=== PATIENT | female | born 1945 | race Caucasian/White ===

== ENCOUNTER 2023-10-28 09:27 | Inpatient (IN) ==
[2023-10-28 10:08] LABS: Basophils # (auto) 0.04 K/uL (0.00-0.20); Basophils % (auto) 0.6 %; Eosinophils # (auto) 0.07 K/uL (0.00-0.50); Eosinophils % (auto) 1.1 %; Hematocrit (blood only) 39.2 % (37.0-47.0); Hemoglobin 13.4 g/dl (12.0-16.0); Immature Granulocytes # (auto) 0.02 K/uL (0.01-0.20); Immature Granulocytes % (auto) 0.3 %; Lymphocytes # (auto) 1.24 K/uL (1.20-3.40); Lymphocytes % (auto) 19.5 %; Mean Corpuscular Hemoglobin 32.1 pg (25.0-34.0); Mean Corpuscular Hgb Conc 34.2 g/dL (32.0-36.0); Mean Corpuscular Volume 93.8 fL (80.0-100.0); Monocytes % (auto) 7.8 %; Neutrophils % (auto) 70.7 %; Platelet Count 160 K/uL (130-400); RDW Standard Deviation 44.4 fL (36.4-46.3); Red Blood Count 4.18 M/uL (4.20-5.40); White Blood Count 6.37 K/ul (4.8-10.8)
--- NOTE | 2023-10-28 10:30 | XRay Report ---
XR chest 1V portable CLINICAL HISTORY: Syncope. COMPARISON STUDY: Chest radiograph November 15, 2008. FINDINGS: Elevation of the right hemidiaphragm is unchanged. Lungs are clear. There is no pneumothora x or pleural effusion. Cardiomegaly is unchanged. Mediastinal contours are normal. There is no eviden ce for pulmonary edema. IMPRESSION: No acute cardiopulmonary findings. No change in appearance of the chest. ACT 112: Negative or not required by law. Electronically signed by: Thaddeus Walker M.D. 10/28/2023 10:29 AM
[2023-10-28 10:45] LABS: Albumin Level 4.4 gm/dl (3.4-5.0); Bilirubin,Total 0.8 mg/dl (0.2-1.0); Calcium 9.5 mg/dl (8.6-10.3); Magnesium 1.9 mg/dl (1.7-2.4); Potassium 4.3 mmol/L (3.5-5.1)
[2023-10-28 10:51] LABS: Albumin Globulin Ratio 1.5 (0.9-2); BUN Creatinine Ratio 27.6 (10-20); Creatinine Clr Calc Pharmacy 44.6 ml/min; Est GFR (Non-African American) 45.7 ml/min; Globulin 2.9 gm/dl (2.5-4.0); Total Protein 7.3 gm/dl (6.0-8.3)
--- NOTE | 2023-10-28 10:51 | CT Scan Report ---
CT SCAN OF THE BRAIN WITHOUT IV CONTRAST CLINICAL HISTORY: Fall. COMPARISON STUDY: No priors. TECHNIQUE: Unenhanced axial CT scan of the brain is performed from the vertex to the skull base. A do se lowering technique was utilized adhering to the principles of ALARA. FINDINGS: Brain parenchyma: There is age-related involutional change noting mild to moderate subcortical and pe riventricular microangiopathic disease. There is no hemorrhage, mass effect, or evidence of acute ter ritorial ischemia by CT criteria. Singleton-white matter differentiation is preserved. No extra-axial flui d collection is seen. Ventricles, sulci, cisterns: Prominent secondary to involutional change. Intracranial vasculature: There is atherosclerotic calcification of the cavernous carotid arteries. Calvarium: The skeletal structures are osteopenic. No depressed calvarial fracture is seen. Soft tissues: There is a left frontal scalp contusion. Sinuses and mastoids: The paranasal sinuses are clear. The mastoid air cells are well pneumatized. Orbits: The bony orbits are grossly intact. There are bilateral ocular lens implants. IMPRESSION: 1. There is no hemorrhage, mass effect, or evidence of acute territorial ischemia by CT criteria. 2. Left frontal scalp contusion. ACT 112: Negative or not required by law. Electronically signed by: Erick Proctor M.D. 10/28/2023 10:48 AM
--- NOTE | 2023-10-28 10:59 | CT Scan Report ---
MAXILLOFACIAL CT WITHOUT CONTRAST CLINICAL HISTORY: s/p fall COMPARISON STUDY: None. TECHNIQUE: A maxillofacial CT was performed without IV contrast. Coronal and sagittal reformats were viewed. Automated exposure control was utilized for the study. A dose lowering technique was utiliz ed adhering to the principles of ALARA. FINDINGS: A left forehead contusion is present. Globes are intact with no retrobulbar hematoma. No di splaced facial fractures are present. Orbital floors are intact. There is an age indeterminate nondis placed left nasal bone fracture. Alignment of the temporomandibular joints is anatomic. Mastoid air c ells are clear. No skull base fracture is present IMPRESSION: 1. Age indeterminate nondisplaced left nasal bone fracture. 2. Left forehead contusion. Globes intact. No retrobulbar hematoma. ACT 112: Negative or not required by law. Electronically signed by: Thaddeus Walker M.D. 10/28/2023 10:57 AM
[2023-10-28 11:04] LABS: Troponin I High Sensitivity 8.2 pg/ml (0-14)
--- NOTE | 2023-10-28 11:09 | Electrocardiogram Report ---
Test Reason : Blood Pressure : / mmHG Vent. Rate : 068 BPM Atrial Rate : 068 BPM P-R Int : 174 ms QRS Dur : 092 ms QT Int : 402 ms P-R-T Axes : 036 -33 052 degrees QTc Int : 427 ms Normal sinus rhythm Left axis deviation Abnormal ECG When compared with ECG of 03-MAR-2008 10:39, No significant change was found Confirmed by Jonathan Nieto ([id number]) on 10/28/2023 11:08:57 AM Referred By: Confirmed By:Jonathan Nieto
[2023-10-28 11:17] LABS: Adenovirus PCR Not Detected (NotDetected); Bordetella parapertussis PCR Not Detected (NotDetected); Bordetella pertussis PCR Not Detected (NotDetected); Chlamydia pneumoniae PCR Not Detected (NotDetected); Coronavirus 229E PCR Not Detected (NotDetected); Coronavirus CoV-2 (COVID19)PCR Not Detected (NotDetected); Coronavirus HKU1 PCR Not Detected (NotDetected); Coronavirus NL63 PCR Not Detected (NotDetected); Coronavirus OC43PCR Not Detected (NotDetected); Human Metapneumovirus PCR Not Detected (NotDetected); Influenza A PCR Not Detected (NotDetected); Influenza B PCR Not Detected (NotDetected); Mycoplasma pneumoniae PCR Not Detected (NotDetected); Parainfluenza Virus 1 PCR Not Detected (NotDetected); Parainfluenza Virus 2 PCR Not Detected (NotDetected); Parainfluenza Virus 3 PCR Not Detected (NotDetected); Parainfluenza Virus 4 PCR Not Detected (NotDetected); Respiratory Syncytial VirusPCR Not Detected (NotDetected); Rhinovirus/Enterovirus PCR Not Detected (NotDetected)
--- NOTE | 2023-10-28 11:17 | CT Scan Report ---
CT cervical spine wo con CLINICAL HISTORY: 78 years-old Female with s/p fall. Acute neck pain status post fall COMPARISON: None. TECHNIQUE: Multiple axial CT images of the cervical spine were obtained without contrast. A dose low ering technique was utilized adhering to the principles of ALARA. FINDINGS: Demineralized appearance of the bones. Multilevel degenerative changes include moderate to severe disc space narrowing at C5-C6 and C6-C7 with moderate spondylitic spurring and moderate-sized posterior disc osteophyte complex formations with moderate facet arthrosis. Severe degeneration at C1 -C2. No acute cervical spine fracture or subluxation identified. The cervical soft tissues appear unremarkable. The visualized lung apices appear clear. IMPRESSION: No acute cervical spine fracture or subluxation. ACT 112: Negative or not required by law. The above report was generated using voice recognition software. It may contain grammatical, syntax o r spelling errors. Electronically signed by: Joaquín Carmona M.D. 10/28/2023 11:15 AM
--- NOTE | 2023-10-28 12:36 | Emergency Department Note ---
Impression & Plan Syncope and collapse, CHI (closed head injury), Fracture of nasal bone, Forehead contusion, Bilateral arm pain ED Provider Note NAME: GILDARDO ARNOLD AGE: 78 SEX: Female INFORMANT: Patient and ED PROVIDER(S): Ray Guerin MD CHIEF COMPLAINT: Fall PLAN: Disposition: Admitted Outpatient prescription management: none Referral: None MEDICAL DECISION MAKING: Patient presented to the emergency department because of a fall yesterday. She had primary and secondary surveys performed. She had some discomfort in the upper extremities but this seems to be more radicular. There is no obvious signs of upper extremity trauma. She had obvious forehead contusion and healing abrasion to the bridge of the nose. CT imaging of the head and neck along with facial bones ordered. Her CBC and chemistry panels were unremarkable. Cardiac troponin was negative. Her ECG did not show any ischemia. No dysrhythmia or significant ectopy on monitoring. The patient was found to have just forehead contusion on head CT. Facial bone imaging revealed a nasal bone fracture. Patient was found to have degenerative changes and osteophyte/disc complex on cervical CT imaging. This may explain her upper extremity discomfort. Workup did not reveal any obvious etiology to her unprovoked syncopal episode. On further discussion with the he did note that she seemed a little off yesterday afternoon before he left the house but the patient did not have any complaints. MR imaging of the brain and cervical spine ordered. Consultation was made with the hospitalist service. Consultation was made with Dr. Alex Solorzano of the [facility] service. Patient was evaluated in the ER for further management. Care/management discussed with: Discussed with analytical manager Level of care consideration(s): After review of the information above and other included data, I feel the patient requires escalation of care to admission. Triage Nursing notes: reviewed and agree them. Vital Signs: reviewed and remarkable for mild hypertension Additional History obtained from: Patient's . Chronic Medical/Social Conditions affecting care: High cholesterol, hypertension Prior/ Outside/ External records reviewed: none Differential Diagnosis: Concussion, contusion, fracture, subdural hematoma, epidural hematoma, intraparenchymal hemorrhage, cardiac etiology, dysrhythmia, hypotension, as well as other pathologies. Diagnostics, independently interpreted by me: ECG: Twelve-lead ECG reveals normal sinus rhythm at 60 bpm. Left axis deviation. No ST elevation or depression. Cardiac Monitoring: Cardiac monitoring ordered by me: The patient was placed on continuous cardiac monitoring and observed. It revealed a normal sinus rhythm at 69 beats per minute without ectopy or evidence of dysrhythmia. Medical decision rules: none Imaging studies: CT scan of the head, facial bones and cervical spine reveal nasal bone fracture. Degenerative changes and disc osteophyte noted on cervical imaging. HPI: 78 year old Female arrives for evaluation of a fall this occurred yesterday. Patient. States that she woke up on the floor in her kitchen and there was a broken glass. She does not remember the event. She denies feeling ill or having any prodrome prior to the event. No prior history of syncope. Patient's is present and notes that he had to leave the house yesterday afternoon and she seemed to be a little off but was without complaints. Patient noted bruising to the forehead, around her eyes and bleeding from her nose. There was an abrasion on the bridge of the nose. Patient also notes swelling of her upper lip with some bruising as well. She has discomfort that is in both hands and wrist. Radiates up towards her shoulders. She has some discomfort in her neck. She does note having a mild cold a few weeks ago. Pt denies fevers, chills, diaphoresis, visual changes,chest pain, breathing difficulties, nausea, vomiting, abdominal pain, back pain, melena, hematochezia, urinary symptoms, numbness, weakness, lymphadenopathy, rash, or other complaints. PAST MEDICAL HISTORY: See Below, hypertension PAST SURGICAL HISTORY: See Below, SOCIAL HISTORY: See Below, HOME MEDICATIONS: See Below ALLERGIES: See Below VITALS: See Below PHYSICAL EXAMINATION: GENERAL: Awake, alert, well-appearing, in no distress HENT: Normocephalic, forehead contusion present. There is a healing abrasion noted on the bridge of the nose. Some mild tenderness in this area. Mild perinasal ecchymosis as well as periorbital ecchymosis TMs normal.. Oropharynx unremarkable except for contusion to the upper lip and abrasion to the inner aspect of the upper lip. EYES: Normal conjunctiva. Sclera non-icteric. NECK: Inspection normal. Mild tenderness around C7 without step-offs. Supple. No nuchal rigidity. FROM. No masses. RESPIRATORY: Clear to auscultation. No wheezes. No rales. Normal respiratory effort. CARDIAC: Normal rate. Normal rhythm. No murmurs. No rubs. Extremities warm and well perfused. Pulses equal. No JVD. GI: Soft, non-distended. No tenderness to palpation. No rebound or guarding. No masses. RECTAL: Deferred. MUSCULOSKELETAL: Atraumatic in appearance. The patient has some discomfort in both hands and forearms without any edema, erythema, ecchymosis, or deformity.. Chest examination reveals no tenderness. The back is symmetrical on inspection without obvious abnormality. There is no CVA tenderness to palpation. No joint edema. LOWER EXTREMITIES: Calves are equal size bilaterally and non-tender. No edema. No discoloration. NEURO: Normal sensorium. No sensory or motor deficits noted. SKIN: No rash or jaundice noted. PROCEDURES: none CRITICAL CARE: none OBSERVATION NOTE: none Past Med/Surg History Medical History (Updated 10/28/23 @ 13:27 by Alex Solorzano MD) History of hypoglycemia December 2022 , low sugar...non responsive - hospitalized at [facility]. Determined to have low potassium and dehydration. No re-occurence. PCP has records. History of COVID-13 Sep 2021. Glaucoma Overactive bladder mostly at night.ongoing for yrs. History of colitis mild.showed up on a ct scan. Emphysema lung mild/no medical tx ever in hx. Asthma mild/no medical tx ever in hx. History of sleep apnea resolved after weight loss sx. Arthritis Anxiety and depression Low iron hx Acid reflux Hyperlipidemia HTN (hypertension) Diabetes diet controlled/improved after weight loss surgery. Surgical History (Updated 10/28/23 @ 12:49 by Alex Solorzano MD) Hx of left cataract extraction w/ left I stent injection History of cardiac cath remote hx...sob...[place]...no stent(s). History of total right knee replacement History of left knee replacement History of gastric bypass February 2012. History of colonoscopy Social History Smoking Status: Never smoker Tobacco Type: Cigarettes Second Hand Exposure: No; Do You Dip or Chew Tobacco: No; Hx Alcohol Use: Yes Alcohol type: wine and other Hx Substance Use: Yes Last Used Substance Other:: remote hx marijuana Preferred Language: Macedonian Communication Ability: Effective As400 Programmer Analyst Required: No Beliefs That Will Affect Care: None Current Living Situation: Spouse Current Living Situation Comment: and dog and cat Feels Safe at Home: Yes Assistive Devices: Glasses and Other Allergies Allergies Allergy/AdvReac Type Severity Reaction Status Date / Time celecoxib AdvReac Unknown SKIN Verified 09/07/23 08:00 [place] Home Meds Home Medications Medication Instructions Recorded Confirmed aspirin 81 mg tablet,delayed 81 mg PO QPM 08/14/23 10/28/23 release atorvastatin 40 mg tablet 40 mg PO QPM 08/14/23 10/28/23 buspirone 5 mg tablet 5 mg PO BID 08/14/23 10/28/23 calcium carbonate 600 mg-vitamin 1 tab PO BID 08/14/23 10/28/23 D3 5 mcg (200 unit) tablet cholecalciferol (vitamin D3) 50 50 mcg PO QPM 08/14/23 10/28/23 mcg (2,000 unit) capsule (Vitamin D3) cyanocobalamin (vitamin B-12) 1,000 mcg PO QAM 08/14/23 10/28/23 1,000 mcg tablet (Vitamin B-12) duloxetine 60 mg capsule,delayed 60 mg PO QAM 08/14/23 10/28/23 release esomeprazole magnesium 20 mg 20 mg PO QAM 08/14/23 10/28/23 tablet,delayed release ferrous sulfate 325 mg (65 mg 65 mg PO HS 08/14/23 10/28/23 iron) capsule,extended release hydrochlorothiazide 25 mg tablet 25 mg PO QAM 08/14/23 10/28/23 losartan 100 mg tablet 100 mg PO QPM 08/14/23 10/28/23 magnesium 250 mg tablet 250 mg PO QPM 08/14/23 10/28/23 potassium chloride 10 mEq 10 meq PO .EVERY OTHER DAY 08/14/23 10/28/23 tablet,extended release venlafaxine 37.5 mg 37.5 mg PO QAM 08/14/23 10/28/23 capsule,extended release 24 hr amoxicillin 500 mg capsule 2,000 mg PO .1 HR BEFORE CAROL ANN PRN 10/28/23 10/28/23 dental latanoprost 0.005 % eye drops 1 drp ophthalmic (eye) HS 10/28/23 10/28/23 Results & Data (ED) Vital Signs Vital Signs - 24 hr 10/28/23 09:30 10/28/23 11:30 10/28/23 12:02 Temperature 36.5 C Temperature Source Temporal Artery Scan Pulse Rate 76 69 Pulse Rate [Apical] 69 Respiratory Rate 20 18 Respiratory Effort / Characteristics Non-Labored Spontaneous Non-Labored Spontaneous Respiratory Depth Normal Normal Respiratory Pattern Regular Blood Pressure 180/80 H Blood Pressure [Right Arm] 174/98 H Blood Pressure Mean 113 Blood Pressure Mean [Right Arm] 123 Blood Pressure Position [Right Arm] Lying Pulse Oximetry 99 95 Oxygen Delivery Method Room Air Room Air Sepsis Recent Fever Within 48 Hours No Sepsis New/Unexplained Change in Mental Status No Sepsis Action Taken by Nursing No Action Required 10/28/23 13:19 Temperature Temperature Source Pulse Rate Pulse Rate [Apical] 66 Respiratory Rate 18 Respiratory Effort / Characteristics Non-Labored Spontaneous Respiratory Depth Normal Respiratory Pattern Regular Blood Pressure Blood Pressure [Right Arm] 178/87 H Blood Pressure Mean Blood Pressure Mean [Right Arm] 117 Blood Pressure Position [Right Arm] Lying Pulse Oximetry 97 Oxygen Delivery Method Room Air Sepsis Recent Fever Within 48 Hours Sepsis New/Unexplained Change in Mental Status Sepsis Action Taken by Nursing Laboratory Data 10/28/23 09:52 10/28/23 09:52 Lab Results 10/28/23 10/28/23 Range/Units 09:52 10:22 WBC 6.37 (4.8-10.8) K/ul RBC 4.18 L (4.20-5.40) M/uL Hgb 13.4 (12.0-16.0) g/dl Hct 39.2 (37.0-47.0) % MCV 93.8 (80.0-100.0) fL MCH 32.1 (25.0-34.0) pg MCHC 34.2 (32.0-36.0) g/dL RDW Std Deviation 44.4 (36.4-46.3) fL RDW Coeff of Karen 13.0 (11.5-14.5) % Plt Count 160 (130-400) K/uL MPV 10.0 (9.4-12.4) fL Immature Gran % (Auto) 0.3 % Neut % (Auto) 70.7 % Lymph % (Auto) 19.5 % [place] % (Auto) 7.8 % Eos % (Auto) 1.1 % Baso % (Auto) 0.6 % Neut # (Auto) 4.50 (1.40-6.50) K/uL Lymph # (Auto) 1.24 (1.20-3.40) K/uL [place] # (Auto) 0.50 (0.11-0.59) K/uL Eos # (Auto) 0.07 (0.00-0.50) K/uL Baso # (Auto) 0.04 (0.00-0.20) K/uL Immature Gran # (Auto) 0.02 (0.01-0.20) K/uL Sodium 135 L (136-145) mmol/L Potassium 4.3 (3.5-5.1) mmol/L Chloride 99 (98-107) mmol/L Carbon Dioxide 27 (21-32) mmol/L Anion Gap 9 (3-11) BUN 32 H (6-23) mg/dl Creatinine 1.16 (0.6-1.2) mg/dl Est Cr Clr Drug Dosing 44.6 ml/min Est GFR ( Amer) 53.0 ml/min Est GFR (Non-Af Amer) 45.7 ml/min BUN/Creatinine Ratio 27.6 H (10-20) Glucose 121 H (70-99(Fasting)) mg/dl Calcium 9.5 (8.6-10.3) mg/dl Magnesium 1.9 (1.7-2.4) mg/dl Total Bilirubin 0.8 (0.2-1.0) mg/dl AST 31 (13-39) U/L ALT 35 (7-52) U/L Alkaline Phosphatase 82 (34-104) U/L Troponin I High Sens 8.2 (0-14) pg/ml Total Protein 7.3 (6.0-8.3) gm/dl Albumin 4.4 (3.4-5.0) gm/dl Globulin 2.9 (2.5-4.0) gm/dl Albumin/Globulin Ratio 1.5 (0.9-2) Adenovirus (PCR) Not Detected (NotDetected) B. pertussis DNA (PCR) Not Detected (NotDetected) B.parapertussis DNA PCR Not Detected (NotDetected) C. pneumoniae DNA (PCR) Not Detected (NotDetected) Coronavirus OC43 (PCR) Not Detected (NotDetected) Coronavirus HKU1 (PCR) Not Detected (NotDetected) Coronavirus 229E (PCR) Not Detected (NotDetected) SARS-CoV-2 (PCR) Not Detected (NotDetected) Coronavirus NL63 (PCR) Not Detected (NotDetected) Human Metapneumovir PCR Not Detected (NotDetected) Influenza Type A (PCR) Not Detected (NotDetected) Influenza Type B (PCR) Not Detected (NotDetected) M. pneumoniae (PCR) Not Detected (NotDetected) Parainfluenza 1 (PCR) Not Detected (NotDetected) Parainfluenza 2 (PCR) Not Detected (NotDetected) Parainfluenza 3 (PCR) Not Detected (NotDetected) Parainfluenza 4 (PCR) Not Detected (NotDetected) RSV (PCR) Not Detected (NotDetected) Entero/Rhino (PCR) Not Detected (NotDetected) Imaging Data Radiologist's Impression: Cervical Spine CT 10/28/23 09:38 CT cervical spine wo con CLINICAL HISTORY: 78 years-old Female with s/p fall. Acute neck pain status post fall COMPARISON: None. TECHNIQUE: Multiple axial CT images of the cervical spine were obtained without contrast. A dose lowering technique was utilized adhering to the principles of ALARA. FINDINGS: Demineralized appearance of the bones. Multilevel degenerative changes include moderate to severe disc space narrowing at C5-C6 and C6-C7 with moderate spondylitic spurring and moderate-sized posterior disc osteophyte complex formations with moderate facet arthrosis. Severe degeneration at C1-C2. No acute cervical spine fracture or subluxation identified. The cervical soft tissues appear unremarkable. The visualized lung apices appear clear. IMPRESSION: No acute cervical spine fracture or subluxation. ACT 112: Negative or not required by law. The above report was generated using voice recognition software. It may contain grammatical, syntax or spelling errors. Electronically signed by: Joaquín Carmona M.D. 10/28/2023 11:[address] 10/28/23 09:[address] WITHOUT CONTRAST CLINICAL HISTORY: s/p fall COMPARISON STUDY: None. TECHNIQUE: A maxillofacial CT was performed without IV contrast. Coronal and sagittal reformats were viewed. Automated exposure control was utilized for the study. A dose lowering technique was utilized adhering to the principles of ALARA. FINDINGS: A left forehead contusion is present. Globes are intact with no retrobulbar hematoma. No displaced facial fractures are present. Orbital floors are intact. There is an age indeterminate nondisplaced left nasal bone fracture. Alignment of the temporomandibular joints is anatomic. Mastoid air cells are clear. No skull base fracture is present IMPRESSION: 1. Age indeterminate nondisplaced left nasal bone fracture. 2. Left forehead contusion. Globes intact. No retrobulbar hematoma. ACT 112: Negative or not required by law. Electronically signed by: Thaddeus Walker M.D. 10/28/2023 10:[address] 10/28/23 09:38 CT SCAN OF THE BRAIN WITHOUT IV CONTRAST CLINICAL HISTORY: Fall. COMPARISON STUDY: No priors. TECHNIQUE: Unenhanced axial CT scan of the brain is performed from the vertex to the skull base. A dose lowering technique was utilized adhering to the principles of ALARA. FINDINGS: Brain parenchyma: There is age-related involutional change noting mild to moderate subcortical and periventricular microangiopathic disease. There is no hemorrhage, mass effect, or evidence of acute territorial ischemia by CT criteria. Singleton-white matter differentiation is preserved. No extra-axial fluid collection is seen. Ventricles, sulci, cisterns: Prominent secondary to involutional change. Intracranial vasculature: There is atherosclerotic calcification of the cavernous carotid arteries. Calvarium: The skeletal structures are osteopenic. No depressed calvarial fracture is seen. Soft tissues: There is a left frontal scalp contusion. Sinuses and mastoids: The paranasal sinuses are clear. The mastoid air cells are well pneumatized. Orbits: The bony orbits are grossly intact. There are bilateral ocular lens implants. IMPRESSION: 1. There is no hemorrhage, mass effect, or evidence of acute territorial ischemia by CT criteria. 2. Left frontal scalp contusion. ACT 112: Negative or not required by law. Electronically signed by: Erick Proctor M.D. 10/28/2023 10:48 AM Chest X-Ray 10/28/23 09:42 XR chest 1V portable CLINICAL HISTORY: Syncope. COMPARISON STUDY: Chest radiograph November 15, 2008. FINDINGS: Elevation of the right hemidiaphragm is unchanged. Lungs are clear. There is no pneumothorax or pleural effusion. Cardiomegaly is unchanged. Mediastinal contours are normal. There is no evidence for pulmonary edema. IMPRESSION: No acute cardiopulmonary findings. No change in appearance of the chest. ACT 112: Negative or not required by law. Electronically signed by: Thaddeus Walker M.D. 10/28/2023 10:29 AM Discharge Plan Visit Data Chief Complaint: Fall Stated Complaint: FALL, FACIAL INJURY, HAND AND ARM PAIN, BACK PAIN ED Provider: Ray Guerin Discharge Problem: Syncope and collapse, CHI (closed head injury), Fracture of nasal bone, Forehead contusion, Bilateral arm pain Patient Disposition: Admitted As Inpatient Discharge Instructions Interventions: ED Discharge Assessment Last Done: 10/28/23 14:07
--- NOTE | 2023-10-28 12:54 | History & Physical Report ---
Date of Service October 28, 2023 Assessment & Plan (1) Syncope and collapse: Plan: Syncope No prodrome, no lightheadedness/dizziness preceding this. Denies orthostatic symptoms, is on losartan/hydrochlorothiazide. did stand to go to the kitchen prior. Orthostatics pending Sudden onset syncope with facial injury highly concerning for cardiogenic syncope. Normal sinus rhythm on admission. Denies chest pain/chest pressure/exertional angina. Echo pending, continuous telemetry, if remaining workup is negative would set up with 30-day Holter monitor and close follow-up on discharge Patient reports she think she had a history of mini strokes which were noted when she was in [place] but denies any symptoms for these and believes they were caught incidentally, details are unclear. She has no focal neurologic deficits prior to passing out, does have some paresthesias extending from the elbow to fingertips bilaterally since her fall? Blunt trauma neuropraxia. MRI brain/spine are pending. CT of the C-spine with no fracture or subluxation, CT of the head is normal Troponin normal Patient has had low blood sugar symptoms in the past, former diabetic which is now diet controlled since having weight loss post bariatric surgery. Blood sugar at time of event was 130 checked by her . Rulted out as cause No history of arrhythmia, EKG NSR on admission (2) CHI (closed head injury): Plan: With syncope evaluation is noted. No ICH. Mentating normally at time of ADMIT (3) Anxiety and depression: Plan: Continue home medications, no acute change in management (4) Paresthesia of upper extremity: Plan: Without strength or sensation compromise - [employer] Utility Worker strength, elbow flexion, shoulder flexion, hip flexion, ankle dorsiflexion/plantarflexion 5/5 bilaterally without asymmetry. [employer] Worker strength does produce some radicular symptoms from digits 1-3 extending up to the elbow bilateral with a shocking quality bilaterally. No symptoms induced on continued elbow flexion, tinel's negative at the cubital tunnel bilaterally. and froment's sign is not present. CTC-spine negative, CThead negative. MRI of the C-spine/brain are pending. Patient denies weakness and other strokelike deficits, but does note she thinks she may have had some strokelike findings on a CT many years ago but was told this was probably a mini stroke and did not have an MRI after. She does take a baby aspirin daily and is on atorvastatin for hyperlipidemia DDx includes traumatic blunt neuropraxia/plexopathy due to syncope Follow MRI results, if persistent and initial eval neg --> f/u EMG -No other strokelike deficits (5) Diabetes: Plan: In remission diet controlled since significant weight loss following bariatric surgery. Sliding scale as needed goal BSG 1 10-150 (6) History of cardiac cath: Plan: Patient reports she has never had chest pain, this was performed for shortness of breath prior to having weight loss and was normal many years ago. Shortness of breath was found to be due to weight and improved after her weight loss. 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 She did strike her head and has a forehead contusion on ER evaluation. Patient has shooting pain in her upper extremities bilaterally. Per Pt: Suddenly passed out yesterday. No warning. BSG was checked 131 at the time. No lightheadedness, dizziness. Was just playing with the dog and the cat watching TV. Did get up to take metamucil and take the glass into the kitchen and then next thing she knew was waking up on the floor of the house. No chest pain or chest pressure. No headache. No lightheadeness or dizziness. Denies weakness, has had some paresthesia in her hands bilaterally since yesterday. Denies GI bleeding and melena. Denies other bleeding. Denies focal weakness/extremity weakness. Denies vision change. Denies diplopia. Denies expressive or receptive aphasia. Denies dysarthria. No hx of lightheadedness No history of heart disease. Had a cardiac cath due to transient shortness of breath 'many man yyears ago before my weight loss' which showed nonobstructive disease/no disease. Was done in [place] w/ f/u to [place] and 'I was the only one normal that day.' Since falling has numbness/tingling in her fingertips which feel like 'little shocks'. Shoots down between the elbow and wrists/fingers on BOTH sides.' noted she transiently seemed a little confused and disoriented like she was with low blood sugar before falling, pt does not recall this and they checked her BSG which was normal as noted Hx of emphysema and asthma, takes no medications History of T2DM which was cured after weight loss with gastric bipass HTN on losartan/hctz. Took this AM. No hx orthostasis, feels her BP has been OK generally. Was seen in a hospital in [place] last year and ?evidence of ministrokes but patient has never had stroke like symptoms Medical History: Reviewed Medications: Reviewed Surgical History: Reviewed Family history: Reviewed Allergies: Reviewed Social History: Tobacco use in remission since 1994. Prior 30 years 1 ppd on average. Etoh 1 drink in the evening,one hard seltzer soemtimes in the evening. Code Status: DNR/DNI, discussed on admit Allergies Allergy/AdvReac Type Severity Reaction Status Date / Time celecoxib AdvReac Unknown SKIN Verified 09/07/23 08:00 [place] Home Medications Medication Instructions Recorded Confirmed Type aspirin 81 mg tablet,delayed 81 mg PO QPM 08/14/23 10/28/23 History release atorvastatin 40 mg tablet 40 mg PO QPM 08/14/23 10/28/23 History buspirone 5 mg tablet 5 mg PO BID 08/14/23 10/28/23 History calcium carbonate 600 mg-vitamin 1 tab PO BID 08/14/23 10/28/23 History D3 5 mcg (200 unit) tablet cholecalciferol (vitamin D3) 50 50 mcg PO QPM 08/14/23 10/28/23 History mcg (2,000 unit) capsule (Vitamin D3) cyanocobalamin (vitamin B-12) 1,000 mcg PO QAM 08/14/23 10/28/23 History 1,000 mcg tablet (Vitamin B-12) duloxetine 60 mg capsule,delayed 60 mg PO QAM 08/14/23 10/28/23 History release esomeprazole magnesium 20 mg 20 mg PO QAM 08/14/23 10/28/23 History tablet,delayed release ferrous sulfate 325 mg (65 mg 65 mg PO HS 08/14/23 10/28/23 History iron) capsule,extended release hydrochlorothiazide 25 mg tablet 25 mg PO QAM 08/14/23 10/28/23 History losartan 100 mg tablet 100 mg PO QPM 08/14/23 10/28/23 History magnesium 250 mg tablet 250 mg PO QPM 08/14/23 10/28/23 History potassium chloride 10 mEq 10 meq PO .EVERY OTHER DAY 08/14/23 10/28/23 History tablet,extended release venlafaxine 37.5 mg 37.5 mg PO QAM 08/14/23 10/28/23 History capsule,extended release 24 hr amoxicillin 500 mg capsule 2,000 mg PO .1 HR BEFORE [facility] PRN 10/28/23 10/28/23 History dental latanoprost 0.005 % eye drops 1 drp ophthalmic (eye) HS 10/28/23 10/28/23 History Past Med/Surg History Medical History (Updated 10/28/23 @ 13:27 by Alex Solorzano MD) History of hypoglycemia December 2022 , low sugar...non responsive - hospitalized at [facility]. Determined to have low potassium and dehydration. No re-occurence. PCP has records. History of COVID-13 Sep 2021. Glaucoma Overactive bladder mostly at night.ongoing for yrs. History of colitis mild.showed up on a ct scan. Emphysema lung mild/no medical tx ever in [place]. Asthma mild/no medical tx ever in [place]. History of sleep apnea resolved after weight loss sx. Arthritis Anxiety and depression Low iron hx Acid reflux Hyperlipidemia HTN (hypertension) Diabetes diet controlled/improved after weight loss surgery. Surgical History (Updated 10/28/23 @ 12:49 by Alex Solorzano MD) Hx of left cataract extraction w/ left I stent injection History of cardiac cath remote hx...sob...Cost...no stent(s). History of total right knee replacement History of left knee replacement History of gastric bypass February 2012. History of colonoscopy Social History Smoking Status: Never smoker Tobacco Type: Cigarettes Second Hand Exposure: No; Do You Dip or Chew Tobacco: No; Hx Alcohol Use: Yes Alcohol type: wine and other Hx Substance Use: Yes Last Used Substance Other:: remote hx marijuana Preferred Language: Nicaraguan Communication Ability: Effective Forming Process Worker Required: No Beliefs That Will Affect Care: None Current Living Situation: Spouse Current Living Situation Comment: and dog and cat Feels Safe at Home: Yes Assistive Devices: Glasses and Other Physical Exam Physical Exam: General: A&Ox3. NAD. Cooperative. HEENT: Swelling and contusion at the bridge of the nose. No ongoing bleeding. Pupils equal and reactive to light. EOM intact without pain and no evidence of entrapment Pulm: CTAB A&P. -wheezes, -rales, -rhonchi. Symmetrical chest rise. No increased work of breathing. No respiratory distress. Cardiac: RRR, -mrg. Radial pulses intact and symmetrical. Abdominal: Nontender, nondistended, soft. BS present. Extremities: Warm, dry. [employer] Worker strength, elbow flexion, shoulder flexion, hip flexion, ankle dorsiflexion/plantarflexion 5/5 bilaterally without asymmetry. [employer] Utility Worker strength does produce some radicular symptoms from digits 1-3 extending up to the elbow bilateral with a shocking quality. No symptoms induced on continued elbow flexion, tinel's negative at the cubital tunnel bilaterally. and froment's sign is not present. Results & Data Results & Data Vital Signs (Past 12 Hours) Vital Signs Temp Pulse Pulse Resp BP BP Pulse Ox 10/28/23 12:02 69 10/28/23 11:30 69 18 174/98 H 95 10/28/23 09:30 36.5 C 76 20 180/80 H 99 O2 Del Method 10/28/23 12:02 10/28/23 11:30 Room Air 10/28/23 09:30 Room Air PG Care Time/CCT Total # of Minutes Spent Total Time Spent with Patient: Total time spent is greater than 50% in coordination of care (as documented) at patient's floor/unit and/or counseling patient: Coding Level of Care Code 63854 INT INP/OBS CARE 3/75MIN Diagnoses Syncope and collapse R55 CHI (closed head injury) S09.90XA Anxiety and depression F41.9; F32.A Paresthesia of upper extremity R20.2 Diabetes E11.9 History of cardiac cath Z98.890 History of gastric bypass Z98.84
[2023-10-28] MEDS ORDERED: LABETALOL HCL IV 5 MG/ML 20ML IV PRN (13:30)
[2023-10-28] MEDS ORDERED: CARBOHYDRATES FOR HYPOGLYCEMIA PO PRN (13:31)
[2023-10-28] MEDS ORDERED: GLUCOSE 40% GEL 15 GM TUBE PO PRN (13:31)
[2023-10-28] MEDS ORDERED: GLUCAGON FOR INJ 1 MG VIAL SQ PRN (13:31)
[2023-10-28] MEDS ORDERED: GLUCOSE 10 TAB/TUBE PO PRN (13:31)
[2023-10-28] MEDS ORDERED: DEXTROSE 50% 50 ML SYRINGE IV PRN (13:31)
[2023-10-28] MEDS ORDERED: ACETAMINOPHEN 325 MG TAB PO PRN (14:08)
--- NOTE | 2023-10-28 15:29 | XCELERA ---
[id number]
[2023-10-28] MEDS: INSULIN ASPART PER UNIT CHARGE SC SCH ×2 (17:17→21:05)
--- NOTE | 2023-10-28 18:57 | Magnetic Resonance Report ---
MRI OF THE BRAIN WITHOUT IV CONTRAST CLINICAL HISTORY: Syncope. Head injury. COMPARISON STUDY: CT of the brain dated 10/28/2023. TECHNIQUE: MRI of the brain was performed utilizing various T1 and T2-weighted sequences in the axial , sagittal, and coronal planes. IV contrast was not administered for this examination. FINDINGS: Brain parenchyma: There is age-related involutional change noting mild to moderate subcortical and pe riventricular microangiopathic disease. There is no hemorrhage or mass effect. There is no restricted diffusion to suggest acute ischemia. Singleton-white matter differentiation is preserved. No extra-axial fluid collection is seen. The cerebellar tonsils are normal in configuration. Ventricles, sulci, and cisterns: Prominent secondary to involutional change. Pituitary and sella: Unremarkable. Intracranial vasculature: Normal flow voids are maintained at the skull base. Orbits: The bony orbits are grossly intact. Orbital contents are normal in appearance noting bilatera l ocular lens implants. Sinuses and mastoids: Clear. Calvarium: Unremarkable. Soft tissues: There is left frontal scalp contusion. Cervical cord: Partially visualized cervical spinal cord is normal in morphology and signal intensity . IMPRESSION: No acute intracranial abnormality. ACT 112: Negative or not required by law. Electronically signed by: Erick Proctor M.D. 10/28/2023 6:56 PM
[2023-10-28] MEDS: ASPIRIN 81 MG ECTAB PO SCH (19:30)
[2023-10-28] MEDS: ATORVASTATIN 40 MG TAB PO SCH (19:30)
[2023-10-28] MEDS: CHOLECALCIFEROL 1,000 UNITS 25 MCG TAB PO SCH (19:31)
[2023-10-28] MEDS: FERROUS SULFATE 325 MG TAB PO SCH (19:31)
[2023-10-28] MEDS: CALCIUM 600MG + VIT D 400 IU TAB PO SCH (19:31)
[2023-10-28] MEDS: LOSARTAN POTASSIUM 50 MG TAB PO SCH (19:31)
[2023-10-28] MEDS: busPIRone 5 MG TAB PO SCH (19:31)
[2023-10-28] MEDS: MAGNESIUM OXIDE 400 MG TAB PO SCH (19:32)
--- NOTE | 2023-10-28 20:31 | Magnetic Resonance Report ---
Exam(s): MRI C SPINE EXAM: MR Cervical Spine Without Intravenous Contrast CLINICAL HISTORY: Fall. TECHNIQUE: Magnetic resonance images of the cervical spine without intravenous contrast in multiple planes. COMPARISON: CT C spine 10/28/2023. FINDINGS: Vertebrae: No acute fracture or malalignment. Spinal cord: There is mild edema of the spinal cord at the level of C4 and C5. Soft tissues: Unremarkable. DISCS/SPINAL CANAL/NEURAL FORAMINA: C2-C3: Minimal disc osteophyte compress without significant neural foraminal stenosis or spinal canal stenosis. C3-C4: Disc osteophyte complex and uncovertebral spurs results in mild bilateral neural foraminal stenosis. There is mild spinal canal stenosis. C4-C5: Disc osteophyte complex and uncovertebral spurs of C4-C5 results in moderate bilateral neural foraminal stenosis. There is moderate spinal canal stenosis. C5-C6: Disc osteophyte complex and uncovertebral spurs of C5-C6 results in moderate bilateral neural foraminal stenosis. There is moderate spinal canal stenosis. C6-C7: Disc osteophyte complex and uncovertebral spurs results in moderate bilateral neural foraminal stenosis. There is mild spinal canal stenosis. C7-T1: Mild disc osteophyte complex results in no significant stenosis. IMPRESSION: 1. There is mild edema of the spinal cord at the level of C4 and C5. 2. Disc osteophyte complex and uncovertebral spurs of C4-C5 results in moderate bilateral neural foraminal stenosis. There is moderate spinal canal stenosis. 3. Disc osteophyte complex and uncovertebral spurs of C5-C6 results in moderate bilateral neural foraminal stenosis. There is moderate spinal canal stenosis. Communications: Call Doctor Above results Electronically signed by: Pennie Sotomayor MD 10/28/23 20:30 PM
[2023-10-28] MEDS: LATANOPROST 0.005% OP SOLN 2.5 ML BTL OP SCH (20:40)
[2023-10-28] MEDS ORDERED: DEXAMETHASONE SOD INJ 4 MG/ML VIAL IV SCH (20:45)
[2023-10-28] MEDS: dexAMETHasone 8 MG in SYRINGE 0 ML IV SCH (21:50)
[2023-10-29] MEDS: dexAMETHasone 8 MG in SYRINGE 0 ML IV SCH ×3 (03:36→20:09)
[2023-10-29 06:29] LABS: Hematocrit (blood only) 41.3 % (37.0-47.0); Hemoglobin 13.8 g/dl (12.0-16.0); Mean Corpuscular Hemoglobin 31.7 pg (25.0-34.0); Mean Corpuscular Hgb Conc 33.4 g/dL (32.0-36.0); Mean Corpuscular Volume 94.7 fL (80.0-100.0); Mean Platelet Volume 10.2 fL (9.4-12.4); Platelet Count 167 K/uL (130-400); RDW Coefficient of Variation 13.1 % (11.5-14.5); RDW Standard Deviation 45.2 fL (36.4-46.3); Red Blood Count 4.36 M/uL (4.20-5.40); White Blood Count 4.01 K/ul (4.8-10.8)
[2023-10-29 06:41] LABS: BUN Creatinine Ratio 26.9 (10-20); Calcium 9.5 mg/dl (8.6-10.3); Creatinine Clr Calc Pharmacy 49.2 ml/min; Est GFR (African American) 57.7 ml/min; Est GFR (Non-African American) 49.8 ml/min; Potassium 4.4 mmol/L (3.5-5.1)
[2023-10-29 06:58] LABS: Basophils # (auto) 0.01 K/uL (0.00-0.20); Basophils % (auto) 0.2 %; Immature Granulocytes # (auto) 0.01 K/uL (0.01-0.20); Immature Granulocytes % (auto) 0.2 %; Lymphocytes # (auto) 0.51 K/uL (1.20-3.40); Lymphocytes % (auto) 12.7 %; Monocytes # (auto) 0.04 K/uL (0.11-0.59); Neutrophils # (auto) 3.44 K/uL (1.40-6.50); Neutrophils % (auto) 85.9 %
--- NOTE | 2023-10-29 07:29 | Hospitalist Progress Note ---
Date of Service October 29, 2023 Assessment & Plan (1) Paresthesia of upper extremity: (2) History of gastric bypass: (3) History of cardiac cath: (4) Diabetes: (5) Syncope and collapse: (6) CHI (closed head injury): Daljit Carrion is a 78-year-old female with a past medical history of cataract surgery, diabetes, anxiety/depression, who presented after a fall 1 day [employer]. She did strike her head and has a forehead contusion on ER evaluation. Patient has shooting pain in her upper extremities bilaterally. Suddenly passed out on 10/27 without warning- no lightheadedness, dizziness, and had normal blood sugar at the time. Syncope without Prodrome -No prodrome, no lightheadedness/dizziness preceding this. Denies orthostatic symptoms. -Sudden onset syncope with facial injury highly concerning for cardiogenic syncope. Normal sinus rhythm on admission. Denies chest pain/chest pressure/exertional angina. -Echo completed: left ventricular systolic function normal, no regional wall motion abnormalities, mild concentric LVH, EF 60-65% -Patient denies history of arrhythmia, telemetry and EKG unrevealing at present -Cardiology consulted, appreciate recommendations -Continue monitoring on telemetry CHI (closed head injury) -With syncope evaluation is noted. No ICH. -Forehead contusion with ecchymosis -Normal mentation Anxiety and depression -Continue home medications, no acute change in management Cervical Spinal Stenosis with Myeloradiculopathy | Paresthesia of upper extremity -MRI of c-spine/brain shows evidence of significant cervical spinal stenosis -Ortho spine surgery consulted, appreciate recommendations -Plan to proceed with surgery tomorrow a.m. -MRI interpreted by ortho spine as more severe than initial read by radiology -Continue with Dexamethasone, Vienna J collar at present -Patient notes some ongoing paresthesias of bilateral upper extremities but symptoms are stable. Head Batcher strength does produce some radicular symptoms from digits 1-3 extending up to the elbow with a shocking quality bilaterally. -Patient denies weakness and other strokelike deficits, but does note she thinks she may have had some strokelike findings on a CT many years ago. Diabetes -Diet controlled since significant weight loss following bariatric surgery. -Sliding scale as needed goal BSG 110-150 History of cardiac cath -Patient reports she has never had chest pain, this was performed for shortness of breath prior to having weight loss and was normal many years ago. Shortness of breath was found to be due to weight and improved after her weight loss. 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 vitals noted laying in bed facial bruising hard collar on Cspine breathing unlabored no accessory muscles good effort skin no rashes no pallor or icterus neuro no focal deficits traumatic syncope - on multiple revisits of HPI she recalls no prodrome. while EKG/monitoring thus far and echo are all reassuring, arrhythmia is certainly dx of exclusion - continue monitoring, consult cardiology. if w/u continues to be negative (including prolonged monitoring/ambulatory monitoring) it is possible that this was a "vasaoactive" event (such as orthostasis) and the lack of prodro me was due to concussion/amnesia, but would reach that conclusion by exclusion Cspine trauma and severe Cspine stenosis - hard collar, for surgery. appreciate ortho/spine input pharmacologic DVT proph on hold due to impending spine surgery; SCDs ordered for now Subjective Patient was seen and examined at bedside. No acute events reported overnight. Patient has Vienna-J collar in place. Notes that her hands still feel "tingling" and notes decreased preschool teacher's assistant strength. Denies chest pain, palpitations, shortness of breath. Patient states that prior to her fall, she had no symptoms that suggested she would fall- no weakness, dizziness/lightheadedness, no palpitations etc. Review of Systems Review of Systems: As per above Physical Exam Constitutional: comfortable; no acute distress Eyes: + anicteric sclerae; no conjunctival abn ormality ENMT: Ears: no external ear abnormality Nose: no external nose abnormality Moist mucous membranes Respiratory: normal respiratory effort; does not use accessory muscles Cardiovascular: Rate/Rhythm: regular rate and regular rhythm No lower extremity edema. Gastrointestinal (Abdomen): Inspection/Auscultation: abdomen not distended Percussion/Palpation: abdomen soft; abdomen nontender Skin: Ecchymosis around bilateral eyes, contusion at nasal bridge. Petechiae at back of left hand. Neurologic: awake 4/5 preschool teacher's assistant strength of bilateral hands, ti ngling and mild decrease in sensation Lower extremities with 5/5 strength Psychiatric: A+Ox3, euthymic affect Results & Data Results & Data Vital Signs (Past 12 Hours) Vital Signs Temp Pulse Pulse Resp BP Pulse Ox O2 Del Method 10/29/23 03:47 36.5 C 72 18 162/89 H 93 Room Air 10/28/23 23:00 70 10/28/23 22:30 36.7 C 77 16 162/79 H 95 Room Air 10/28/23 21:02 94 H 16 180/98 H 94 Room Air Diagnostic Findings Cervical Spine CT 10/28/23 09:38 CT cervical spine wo con CLINICAL HISTORY: 78 years-old Female with s/p fall. Acute neck pain status post fall COMPARISON: None. TECHNIQUE: Multiple axial CT images of the cervical spine were obtained without contrast. A dose lowering technique was utilized adhering to the principles of ALARA. FINDINGS: Demineralized appearance of the bones. Multilevel degenerative changes include moderate to severe disc space narrowing at C5-C6 and C6-C7 with moderate spondylitic spurring and moderate-sized posterior disc osteophyte complex formations with moderate facet arthrosis. Severe degeneration at C1-C2. No acute cervical spine fracture or subluxation identified. The cervical soft tissues appear unremarkable. The visualized lung apices appear clear. IMPRESSION: No acute cervical spine fracture or subluxation. ACT 112: Negative or not required by law. The above report was generated using voice recognition software. It may contain grammatical, syntax or spelling errors. Electronically signed by: Joaquín Carmona M.D. 10/28/2023 11:[address] 10/28/23 09:[address] WITHOUT CONTRAST CLINICAL HISTORY: s/p fall COMPARISON STUDY: None. TECHNIQUE: A maxillofacial CT was performed without IV contrast. Coronal and sagittal reformats were viewed. Automated exposure control was utilized for the study. A dose lowering technique was utilized adhering to the principles of ALARA. FINDINGS: A left forehead contusion is present. Globes are intact with no retrobulbar hematoma. No displaced facial fractures are present. Orbital floors are intact. There is an age indeterminate nondisplaced left nasal bone fracture. Alignment of the temporomandibular joints is anatomic. Mastoid air cells are clear. No skull base fracture is present IMPRESSION: 1. Age indeterminate nondisplaced left nasal bone fracture. 2. Left forehead contusion. Globes intact. No retrobulbar hematoma. ACT 112: Negative or not required by law. Electronically signed by: Thaddeus Walker M.D. 10/28/2023 10:[address] 10/28/23 09:38 CT SCAN OF THE BRAIN WITHOUT IV CONTRAST CLINICAL HISTORY: Fall. COMPARISON STUDY: No priors. TECHNIQUE: Unenhanced axial CT scan of the brain is performed from the vertex to the skull base. A dose lowering technique was utilized adhering to the principles of ALARA. FINDINGS: Brain parenchyma: There is age-related involutional change noting mild to moderate subcortical and periventricular microangiopathic disease. There is no hemorrhage, mass effect, or evidence of acute territorial ischemia by CT criteria. Singleton-white matter differentiation is preserved. No extra-axial fluid collection is seen. Ventricles, sulci, cisterns: Prominent secondary to involutional change. Intracranial vasculature: There is atherosclerotic calcification of the cavernous carotid arteries. Calvarium: The skeletal structures are osteopenic. No depressed calvarial fracture is seen. Soft tissues: There is a left frontal scalp contusion. Sinuses and mastoids: The paranasal sinuses are clear. The mastoid air cells are well pneumatized. Orbits: The bony orbits are grossly intact. There are bilateral ocular lens implants. IMPRESSION: 1. There is no hemorrhage, mass effect, or evidence of acute territorial ischemia by CT criteria. 2. Left frontal scalp contusion. ACT 112: Negative or not required by law. Electronically signed by: Erick Proctor M.D. 10/28/2023 10:48 AM Chest X-Ray 10/28/23 09:42 XR chest 1V portable CLINICAL HISTORY: Syncope. COMPARISON STUDY: Chest radiograph November 15, 2008. FINDINGS: Elevation of the right hemidiaphragm is unchanged. Lungs are clear. There is no pneumothorax or pleural effusion. Cardiomegaly is unchanged. Mediastinal contours are normal. There is no evidence for pulmonary edema. IMPRESSION: No acute cardiopulmonary findings. No change in appearance of the chest. ACT 112: Negative or not required by law. Electronically signed by: Thaddeus Walker M.D. 10/28/2023 10:29 AM Brain MRI 10/28/23 12:16 MRI OF THE BRAIN WITHOUT IV CONTRAST CLINICAL HISTORY: Syncope. Head injury. COMPARISON STUDY: CT of the brain dated 10/28/2023. TECHNIQUE: MRI of the brain was performed utilizing various T1 and T2-weighted sequences in the axial, sagittal, and coronal planes. IV contrast was not administered for this examination. FINDINGS: Brain parenchyma: There is age-related involutional change noting mild to moderate subcortical and periventricular microangiopathic disease. There is no hemorrhage or mass effect. There is no restricted diffusion to suggest acute ischemia. Singleton-white matter differentiation is preserved. No extra-axial fluid collection is seen. The cerebellar tonsils are normal in configuration. Ventricles, sulci, and cisterns: Prominent secondary to involutional change. Pituitary and sella: Unremarkable. Intracranial vasculature: Normal flow voids are maintained at the skull base. Orbits: The bony orbits are grossly intact. Orbital contents are normal in appearance noting bilateral ocular lens implants. Sinuses and mastoids: Clear. Calvarium: Unremarkable. Soft tissues: There is left frontal scalp contusion. Cervical cord: Partially visualized cervical spinal cord is normal in morphology and signal intensity. IMPRESSION: No acute intracranial abnormality. ACT 112: Negative or not required by law. Electronically signed by: Erick Proctor M.D. 10/28/2023 6:56 PM Cervical Spine MRI 10/28/23 12:16 CR Exam(s): MRI C SPINE EXAM: MR Cervical Spine Without Intravenous Contrast CLINICAL HISTORY: Fall. TECHNIQUE: Magnetic resonance images of the cervical spine without intravenous contrast in multiple planes. COMPARISON: CT C spine 10/28/2023. FINDINGS: Vertebrae: No acute fracture or malalignment. Spinal cord: There is mild edema of the spinal cord at the level of C4 and C5. Soft tissues: Unremarkable. DISCS/SPINAL CANAL/NEURAL FORAMINA: C2-C3: Minimal disc osteophyte compress without significant neural foraminal stenosis or spinal canal stenosis. C3-C4: Disc osteophyte complex and uncovertebral spurs results in mild bilateral neural foraminal stenosis. There is mild spinal canal stenosis. C4-C5: Disc osteophyte complex and uncovertebral spurs of C4-C5 results in moderate bilateral neural foraminal stenosis. There is moderate spinal canal stenosis. C5-C6: Disc osteophyte complex and uncovertebral spurs of C5-C6 results in moderate bilateral neural foraminal stenosis. There is moderate spinal canal stenosis. C6-C7: Disc osteophyte complex and uncovertebral spurs results in moderate bilateral neural foraminal stenosis. There is mild spinal canal stenosis. C7-T1: Mild disc osteophyte complex results in no significant stenosis. IMPRESSION: 1. There is mild edema of the spinal cord at the level of C4 and C5. 2. Disc osteophyte complex and uncovertebral spurs of C4-C5 results in moderate bilateral neural foraminal stenosis. There is moderate spinal canal stenosis. 3. Disc osteophyte complex and uncovertebral spurs of C5-C6 results in moderate bilateral neural foraminal stenosis. There is moderate spinal canal stenosis. Communications: Call Doctor Above results Electronically signed by: Pennie Sotomayor MD 10/28/23 20:30 PM Resident Activity Tracking Resident Involvement: Resident Care Provided Care Provided: Adult [facility] Medicine
[2023-10-29] MEDS: busPIRone 5 MG TAB PO SCH ×2 (08:41→20:09)
[2023-10-29] MEDS: CALCIUM 600MG + VIT D 400 IU TAB PO SCH ×2 (08:41→20:09)
[2023-10-29] MEDS: PANTOprazole 40 MG TAB PO SCH (08:41)
[2023-10-29] MEDS: CYANOCOBALAMIN (B-12) 500 MCG TABLET PO SCH (08:42)
[2023-10-29] MEDS: DULoxetine HCL 60 MG CAP PO SCH (08:42)
[2023-10-29] MEDS: POTASSIUM CHLORIDE 10 MEQ TABCR PO SCH (08:43)
[2023-10-29] MEDS: hydroCHLOROthiazide 25 MG TAB PO SCH (08:44)
[2023-10-29] MEDS: VENLAFAXINE HCL XR 37.5 MG CAPXR PO SCH (08:44)
[2023-10-29] MEDS: INSULIN ASPART PER UNIT CHARGE SC SCH ×4 (08:52→20:43)
[2023-10-29] MEDS ORDERED: LORazepam 0.5 MG TAB PO STA (10:57)
--- NOTE | 2023-10-29 12:49 | Orthopedic Consultation ---
Date of Consultation October 29, 2023 Assessment & Plan (1) Myelopathy concurrent with and due to spinal stenosis of cervical region: Assessment cervical spinal stenosis with myeloradiculopathy. Plan at this time is an MRI performed yesterday is available for review. I reviewed it personally. My interpretation of the scan is different than the radiologist. There is clear severe spinal stenosis at C4-C5 C5-C6 with cord contour change and edema in the cord itself. There is a large disc protrusion C4-C5 compressing directly against the cord. Plan at this time at length discussed today with the patient and her reviewing her MRI findings and clinical course. In light of the cord edema and severe spinal stenosis I am recommending an anterior cervical corpectomy C5 for adequate canal decompression. The primary goal would be to stabilize the cervical spine and prevent further decline hopefully in time she will have some improvement in her arm and leg function. Risk benefits pros cons alternatives were detail. Risk include but not limited to anesthesia blindness stroke paralysis nerve damage bilateral carotid transfusion dysphagia dysphonia. Then she will bleed destabilization cervical spine improvement in her function. At this time we will make her n.p.o. after midnight plan for surgery first thing in the a.m. History of Present Illness Reason for Consultation: Neck and arm pain Attending Physician: Ugo Kilgore DO History of Present Illness This is a 78-year-old female who presents last evening after a fall at home. She believes it was a syncopal event. She did hit the front of her face. Since that time she has had bilateral arm pain right greater than left. She does have a history of she states this sensations are new. She does describe some decline in motor function and coordination with fine motor skills the upper extremities. She describes her pre-existing balance discrepancy over the past limiting her ability to tolerate exercises at [employer]. Today her symptoms are on the right greater than left forearms and into the fingers. She will describes sensation of fullness in her fingers. She denies any significant cervicalgia back pain or lower extremity weakness. Allergies Allergy/AdvReac Type Severity Reaction Status Date / Time celecoxib AdvReac Unknown SKIN Verified 09/07/23 08:00 BRUISING Home Medications Medication Instructions Recorded Confirmed Type aspirin 81 mg tablet,delayed 81 mg PO QPM 08/14/23 10/28/23 History release atorvastatin 40 mg tablet 40 mg PO QPM 08/14/23 10/28/23 History buspirone 5 mg tablet 5 mg PO BID 08/14/23 10/28/23 History calcium carbonate 600 mg-vitamin 1 tab PO BID 08/14/23 10/28/23 History D3 5 mcg (200 unit) tablet cholecalciferol (vitamin D3) 50 50 mcg PO QPM 08/14/23 10/28/23 History mcg (2,000 unit) capsule (Vitamin D3) cyanocobalamin (vitamin B-12) 1,000 mcg PO QAM 08/14/23 10/28/23 History 1,000 mcg tablet (Vitamin B-12) duloxetine 60 mg capsule,delayed 60 mg PO QAM 08/14/23 10/28/23 History release esomeprazole magnesium 20 mg 20 mg PO QAM 08/14/23 10/28/23 History tablet,delayed release ferrous sulfate 325 mg (65 mg 65 mg PO HS 08/14/23 10/28/23 History iron) capsule,extended release hydrochlorothiazide 25 mg tablet 25 mg PO QAM 08/14/23 10/28/23 History losartan 100 mg tablet 100 mg PO QPM 08/14/23 10/28/23 History magnesium 250 mg tablet 250 mg PO QPM 08/14/23 10/28/23 History potassium chloride 10 mEq 10 meq PO .EVERY OTHER DAY 08/14/23 10/28/23 History tablet,extended release venlafaxine 37.5 mg 37.5 mg PO QAM 08/14/23 10/28/23 History capsule,extended release 24 hr amoxicillin 500 mg capsule 2,000 mg PO .1 HR BEFORE CAROL ANN PRN 10/28/23 10/28/23 History dental latanoprost 0.005 % eye drops 1 drp ophthalmic (eye) HS 10/28/23 10/28/23 History Patient History Medical History (Updated 10/29/23 @ 12:47 by Miles Cuevas DO) History of hypoglycemia December 2022 , low sugar...non responsive - hospitalized at [facility]. Determined to have low potassium and dehydration. No re-occurence. PCP has records. History of COVID-13 Sep 2021. Glaucoma Overactive bladder mostly at night.ongoing for yrs. History of colitis mild.showed up on a ct scan. Emphysema lung mild/no medical tx ever in hx. Asthma mild/no medical tx ever in hx. History of sleep apnea resolved after weight loss sx. Arthritis Anxiety and depression Low iron hx Acid reflux Hyperlipidemia HTN (hypertension) Diabetes diet controlled/improved after weight loss surgery. Surgical History (Updated 10/28/23 @ 12:49 by Alex Solorzano MD) Hx of left cataract extraction w/ left I stent injection History of cardiac cath remote hx...sob...[place]...no stent(s). History of total right knee replacement History of left knee replacement History of gastric bypass February 2012. History of colonoscopy Social History Smoking Status: Former smoker Tobacco Type: Cigarettes Second Hand Exposure: No; Do You Dip or Chew Tobacco: No; Hx Alcohol Use: Yes Alcohol type: wine Hx Substance Use: No Preferred Language: Frisian Communication Ability: Effective Software Developer Mid Level Required: No Beliefs That Will Affect Care: None Current Living Situation: Spouse Current Living Situation Comment: and dog and cat Feels Safe at Home: Yes Safety Concerns: Feels Safe At This Time Assistive Devices: None Physical Exam Physical Exam: On exam I did have the patient ambulate about the room. She has a widened unsteady gait. She cannot heel and toe walk without falling over. She does have evidence of a bilateral Andres sign to testing upper extremities. Has L4-5 strength in grasp biceps triceps and deltoids bilaterally. She is wearing her cervical collar. Results & Data Vital Signs (Past 12 Hours) Vital Signs Temp Pulse Resp BP Pulse Ox O2 Del Method 10/29/23 11:31 36.4 C L 70 18 156/84 H 93 Room Air 10/29/23 10:13 Room Air 10/29/23 07:31 36.5 C 72 18 161/88 H 95 Room Air 10/29/23 03:47 36.5 C 72 18 162/89 H 93 Room Air
--- NOTE | 2023-10-29 15:31 | Billing Data ---
Date of Service October 29, 2023 Coding Level of Care Code 37875 SUB INP/OBS CARE
[2023-10-29 16:09] LABS: Lyme Ab IgG w/WB Rflx Negative (Negative); Lyme Ab IgM w/WB Rflx Negative (Negative)
[2023-10-29] MEDS ORDERED: MELATONIN 3 MG TAB PO PRN (16:52)
[2023-10-29] MEDS: LATANOPROST 0.005% OP SOLN 2.5 ML BTL OP SCH (20:10)
[2023-10-29] MEDS: FERROUS SULFATE 325 MG TAB PO SCH (20:10)
[2023-10-29] MEDS: LOSARTAN POTASSIUM 50 MG TAB PO SCH (20:10)
[2023-10-29] MEDS: ASPIRIN 81 MG ECTAB PO SCH (20:10)
[2023-10-29] MEDS: ATORVASTATIN 40 MG TAB PO SCH (20:11)
[2023-10-29] MEDS: CHOLECALCIFEROL 1,000 UNITS 25 MCG TAB PO SCH (20:11)
[2023-10-29] MEDS: MAGNESIUM OXIDE 400 MG TAB PO SCH (20:11)
[2023-10-30] MEDS: dexAMETHasone 8 MG in SYRINGE 0 ML IV SCH (04:41)
[2023-10-30] MEDS: INSULIN ASPART PER UNIT CHARGE SC SCH ×4 (05:52→20:57)
[2023-10-30 06:30] LABS: Basophils # (auto) 0.01 K/uL (0.00-0.20); Basophils % (auto) 0.1 %; Hematocrit (blood only) 38.3 % (37.0-47.0); Hemoglobin 13.2 g/dl (12.0-16.0); Immature Granulocytes # (auto) 0.03 K/uL (0.01-0.20); Immature Granulocytes % (auto) 0.3 %; Lymphocytes # (auto) 0.89 K/uL (1.20-3.40); Lymphocytes % (auto) 9.5 %; Mean Corpuscular Hemoglobin 31.9 pg (25.0-34.0); Mean Corpuscular Hgb Conc 34.5 g/dL (32.0-36.0); Mean Corpuscular Volume 92.5 fL (80.0-100.0); Mean Platelet Volume 10.2 fL (9.4-12.4); Monocytes # (auto) 0.38 K/uL (0.11-0.59); Monocytes % (auto) 4.1 %; Neutrophils # (auto) 8.07 K/uL (1.40-6.50); Platelet Count 165 K/uL (130-400); RDW Coefficient of Variation 12.9 % (11.5-14.5); RDW Standard Deviation 43.8 fL (36.4-46.3); Red Blood Count 4.14 M/uL (4.20-5.40); White Blood Count 9.38 K/ul (4.8-10.8)
[2023-10-30 06:55] LABS: Calcium 9.1 mg/dl (8.6-10.3); Creatinine Clr Calc Pharmacy 48.6 ml/min; Est GFR (African American) 57.1 ml/min; Est GFR (Non-African American) 49.3 ml/min; Potassium 3.9 mmol/L (3.5-5.1)
--- NOTE | 2023-10-30 07:09 | Anesthesiology Consultation ---
Date of Service October 30, 2023 Assessment & Plan Chart Review Chart Review: Acceptable Risk for Surgery Consults Requested none ASA ASA3 Proposed Anesthesia Anesthesia Type: General Risk / Benefits Reviewed With: PT / POA / Parent / Guardian, Accepts Plan and Informed Consent Obtained History Surgery Operation Date: 10/30/23 07:45 Proposed Procedures p C5 Anterior Cervical Corpectomy - Miles Cuevas DO Height/Weight Height: 5 ft 4 in Weight: 93.3 kg Allergies Allergy/AdvReac Type Severity Reaction Status Date / Time celecoxib AdvReac Unknown SKIN Verified 09/07/23 08:00 BRUISING Medications Home Medications Medication Instructions Recorded Confirmed Last Taken aspirin 81 mg tablet,delayed 81 mg PO QPM 08/14/23 10/28/23 08/23/23 release atorvastatin 40 mg tablet 40 mg PO QPM 08/14/23 10/28/23 08/23/23 buspirone 5 mg tablet 5 mg PO BID 08/14/23 10/28/23 10/28/23 calcium carbonate 600 mg-vitamin 1 tab PO BID 08/14/23 10/28/23 10/28/23 D3 5 mcg (200 unit) tablet cholecalciferol (vitamin D3) 50 50 mcg PO QPM 08/14/23 10/28/23 08/23/23 mcg (2,000 unit) capsule (Vitamin D3) cyanocobalamin (vitamin B-12) 1,000 mcg PO QAM 08/14/23 10/28/23 10/28/23 1,000 mcg tablet (Vitamin B-12) duloxetine 60 mg capsule,delayed 60 mg PO QAM 08/14/23 10/28/23 10/28/23 release esomeprazole magnesium 20 mg 20 mg PO QAM 08/14/23 10/28/23 10/28/23 tablet,delayed release ferrous sulfate 325 mg (65 mg 65 mg PO HS 08/14/23 10/28/23 08/23/23 iron) capsule,extended release hydrochlorothiazide 25 mg tablet 25 mg PO QAM 08/14/23 10/28/23 10/28/23 losartan 100 mg tablet 100 mg PO QPM 08/14/23 10/28/23 08/23/23 magnesium 250 mg tablet 250 mg PO QPM 08/14/23 10/28/23 08/23/23 potassium chloride 10 mEq 10 meq PO .EVERY OTHER DAY 08/14/23 10/28/23 08/23/23 tablet,extended release venlafaxine 37.5 mg 37.5 mg PO QAM 08/14/23 10/28/23 10/28/23 capsule,extended release 24 hr amoxicillin 500 mg capsule 2,000 mg PO .1 HR BEFORE CAROL ANN PRN 10/28/23 10/28/23 Unknown dental latanoprost 0.005 % eye drops 1 drp ophthalmic (eye) HS 10/28/23 10/28/23 Unknown Active Medications Generic Name Dose Route Start Last Admin Trade Name Freq PRN Reason Stop Dose Admin Aspirin 81 mg 10/28/23 21:00 10/29/23 20:10 Aspirin 81 Mg Ectab PO 11/27/23 20:59 81 mg QPM REGGIE Administration Atorvastatin Calcium 40 mg 10/28/23 21:00 10/29/23 20:11 Atorvastatin 40 Mg Tab PO 11/27/23 20:59 40 mg QPM REGGIE Administration Buspirone HCl 5 mg 10/28/23 21:00 10/29/23 20:09 Buspirone 5 Mg Tab PO 11/27/23 20:59 5 mg BID REGGIE Administration Calcium/Vitamin D 1 tab 10/28/23 21:00 10/29/23 20:09 Calcium 600mg + Vit D 400 Iu Tab PO 11/27/23 20:59 1 tab BID REGGIE Administration Cyanocobalamin 1,000 mcg 10/29/23 09:00 10/29/23 08:42 Cyanocobalamin (B-12) 500 Mcg Tablet PO 11/28/23 08:59 1,000 mcg QAM REGGIE Administration Duloxetine HCl 60 mg 10/29/23 09:00 10/29/23 08:42 Duloxetine Hcl 60 Mg Cap PO 11/28/23 08:59 60 mg QAM REGGIE Administration Ferrous Sulfate 325 mg 10/28/23 21:00 10/29/23 20:10 Ferrous Sulfate 325 Mg Tab PO 11/27/23 20:59 325 mg HS REGGIE Administration Hydrochlorothiazide 25 mg 10/29/23 09:00 10/29/23 08:44 Hydrochlorothiazide 25 Mg Tab PO 11/28/23 08:59 25 mg QAM REGGIE Administration Dexamethasone 8 mg/ Syringe 2 mls @ 1 mls/min 10/28/23 21:00 10/30/23 04:41 IV 11/27/23 20:59 1 mls/min Q8H REGGIE Administration Insulin Aspart 0 units 10/30/23 06:00 10/30/23 05:52 Insulin Aspart Per Unit Charge SC 11/29/23 05:59 1 units Q6 REGGIE Administration Latanoprost 1 drops 10/28/23 21:00 10/29/23 20:10 Latanoprost 0.005% Op Soln 2.5 Ml Btl OP 11/27/23 20:59 1 drops HS REGGIE Administration Losartan Potassium 100 mg 10/28/23 21:00 10/29/23 20:10 Losartan Potassium 50 Mg Tab PO 11/27/23 20:59 100 mg QPM REGGIE Administration Magnesium Oxide 400 mg 10/28/23 21:00 10/29/23 20:11 Magnesium Oxide 400 Mg Tab PO 11/27/23 20:59 400 mg QPM REGGIE Administration Pantoprazole Sodium 40 mg 10/29/23 09:00 10/29/23 08:41 Pantoprazole 40 Mg Tab PO 11/28/23 08:59 40 mg QAM REGGIE Administration Potassium Chloride 10 meq 10/29/23 09:00 10/29/23 08:43 Potassium Chloride 10 Meq Tabcr PO 11/28/23 08:59 10 meq Q2D REGGIE Administration Venlafaxine HCl 37.5 mg 10/29/23 09:00 10/29/23 08:44 Venlafaxine Hcl Xr 37.5 Mg Capxr PO 11/28/23 08:59 37.5 mg QAM REGGIE Administration Vitamin D 2,000 units 10/28/23 21:00 10/29/23 20:11 Cholecalciferol 1,000 Units 25 Mcg Tab PO 11/27/23 20:59 2,000 units QPM REGGIE Administration NPO Date Last Intake of Fluids: 10/29/23 Time Last Intake of Fluids: 04:45 Last Intake of Fluids Comment: sip with meds Date Last Intake of Solids: 10/28/23 Time Last Intake of Solids: 17:00 Past Medical History Medical History History of hypoglycemia December 2022 , low sugar...non responsive - hospitalized at [facility]. Determined to have low potassium and dehydration. No re-occurence. PCP has records. History of COVID-13 Sep 2021. Glaucoma Overactive bladder mostly at night.ongoing for yrs. History of colitis mild.showed up on a ct scan. Emphysema lung mild/no medical tx ever in hx. Asthma mild/no medical tx ever in hx. History of sleep apnea resolved after weight loss sx. Arthritis Anxiety and depression Low iron hx Acid reflux Hyperlipidemia HTN (hypertension) Diabetes diet controlled/improved after weight loss surgery. Exercise / Class Metabolic Activity II 4-5 Yardwork/Stairs/Walk up hill Past Surgical History Surgical History Hx of left cataract extraction w/ left I stent injection History of cardiac cath remote hx...sob...[place]...no stent(s). History of total right knee replacement History of left knee replacement History of gastric bypass February 2012. History of colonoscopy Past Anesthesia History No Hx of Anesthesia Complications and No Family Hx of Anesthesia Complications History of PONV No Hx of PONV and No Hx of Motion Sickness Social History Smoking Status: Former smoker Do You Dip or Chew Tobacco: No Hx Alcohol Use: Yes Alcohol type: wine alcohol intake frequency: holidays/special occasions only Hx Substance Use: No substance use type: former substance user and marijuana Last Used Substance Other:: remote hx marijuana Physical Exam Vital Signs Last Vital Signs Temp 97.9 F 10/30/23 06:55 Pulse 62 10/30/23 06:55 Resp 20 10/30/23 06:55 BP 166/95 H 10/30/23 06:55 Pulse Ox 95 10/30/23 06:55 O2 Del Method Room Air 10/30/23 06:55 ENMT Mouth: no dentition abnormality Thyromental Distance: > or= 3.5 Finger Breadths Mallampati Class: III Neck normal visual inspection and + limited neck extension (cervical collar in place) Respiratory normal respiratory effort Auscultation: lungs clear to auscultation bilaterally Cardiovascular Rate/Rhythm: regular rate and regular rhythm Testing Laboratory Results 10/30/23 06:03 10/30/23 06:03 Blood Type A Negative 10/29/23 14:59 Antibody Screen NEGATIVE 10/29/23 14:59 10/30/23 10/29/23 05:48 20:15 POC Glucose 182 H 175 H Electrocardiogram Date: 10/28/23 Normal sinus rhythm, rate 68 bpm Left axis deviation Abnormal ECG When compared with ECG of 03-MAR-2008 10:39, No significant change was found Confirmed by Jonathan Nieto ([id number]) on 10/28/2023 11:08:57 AM Chest X-Ray Date: 10/28/23 FINDINGS: Elevation of the right hemidiaphragm is unchanged. Lungs are clear. There is no pneumothorax or pleural effusion. Cardiomegaly is unchanged. Mediastinal contours are normal. There is no evidence for pulmonary edema. IMPRESSION: No acute cardiopulmonary findings. No change in appearance of the chest. Echocardiogram Date: 10/28/23 LV systolic function is normal No regional wall motion abnormalities Mild concentric LVH EF 60-65% Injection of contrast documented no interatrial shunt Other Testing Cervical spine MRI 10/28/23 IMPRESSION: 1. There is mild edema of the spinal cord at the level of C4 and C5. 2. Disc osteophyte complex and uncovertebral spurs of C4-C5 results in moderate bilateral neural foraminal stenosis. There is moderate spinal canal stenosis. 3. Disc osteophyte complex and uncovertebral spurs of C5-C6 results in moderate bilateral neural foraminal stenosis. There is moderate spinal canal stenosis.
[2023-10-30] MEDS ORDERED: DexMEDEtomidine HCL IV 100 MCG/ML VIAL IV ONE (07:10)
[2023-10-30] MEDS ORDERED: ATROPINE SULFATE 0.1 MG/ML 10ML SYR IV PRN (07:12)
[2023-10-30] MEDS ORDERED: ONDANSETRON INJ 2 MG/ML 2 ML VIAL IV PRN ×2 (07:12→10:41)
[2023-10-30] MEDS ORDERED: fentaNYL citrate PF 100 MCG/2 ML VIAL IV PRN (07:12)
[2023-10-30] MEDS ORDERED: ePHEDrine sulfate 50 MG/ML AMP IV PRN (07:12)
[2023-10-30] MEDS ORDERED: ceFAZolin 330 MG/ML 1 GM VIAL ONE (07:18)
[2023-10-30] MEDS ORDERED: LIDOCAINE 2% 2 ML VIAL/AMP(20MG/ML) INFIL ONE (07:25)
[2023-10-30] MEDS ORDERED: fentaNYL citrate PF 100 MCG/2 ML VIAL ONE ×2 (07:25→08:25)
[2023-10-30] MEDS ORDERED: MIDAZOLAM HCL 1 MG/ML 2ML VIAL ONE (07:25)
[2023-10-30] MEDS ORDERED: HYDROCORTISONE SOD SUCCINATE 100 MG/2 ML VIAL ONE (07:25)
[2023-10-30] MEDS ORDERED: ONDANSETRON INJ 2 MG/ML 2 ML VIAL ONE ×2 (07:25→09:38)
[2023-10-30] MEDS ORDERED: ROCURONIUM BROMIDE 10 MG/ML 5 ML VIAL IV ONE ×2 (07:25→08:22)
[2023-10-30] MEDS ORDERED: PROPOFOL IV EMULSION 10 MG/ML 20 ML VIAL IV ONE (07:25)
--- NOTE | 2023-10-30 07:34 | History & Physical Bridge Note ---
Date of Service October 30, 2023 History & Physical Bridge Note I have examined the patient, reviewed the History & Physical and in the interval since the performance of the History & Physical I have noted the following changes of clinical significance: no changes noted C5 corpectomy
[2023-10-30] MEDS ORDERED: ceFAZolin 2,000 MG/15 ML IV PUSH IV ONE (07:37)
[2023-10-30] MEDS ORDERED: FAMOTIDINE/PF 20 MG/2 ML VIAL IV ONE (07:45)
--- NOTE | 2023-10-30 07:46 | Hospitalist Progress Note ---
Date of Service October 30, 2023 Assessment & Plan (1) Paresthesia of upper extremity: (2) History of gastric bypass: (3) History of cardiac cath: (4) Diabetes: (5) Syncope and collapse: (6) CHI (closed head injury): Daljit Carrion is a 78-year-old female with a past medical history of cataract surgery, diabetes, anxiety/depression, who presented after a fall 1 day [employer]AB[employer]ITIES C[employer]. She did strike her head and has a forehead contusion on ER evaluation. Patient has shooting pain in her upper extremities bilaterally. Suddenly passed out on 10/27 without warning- no lightheadedness, dizziness, and had normal blood sugar at the time. Syncope without Prodrome -No prodrome, no lightheadedness/dizziness preceding this. Denies orthostatic symptoms. -Sudden onset syncope with facial injury highly concerning for cardiogenic syncope. Normal sinus rhythm on admission. Denies chest pain/chest pressure/exertional angina. -Echo completed: left ventricular systolic function normal, no regional wall motion abnormalities, mild concentric LVH, EF 60-65% -Patient denies history of arrhythmia, telemetry and EKG unrevealing at present -Cardiology consulted, appreciate recommendations -Per note, planning for loop recorder placement on Thursday -Continue monitoring on telemetry CHI (closed head injury) -With syncope evaluation is noted. No ICH. -Forehead contusion with ecchymosis -Normal mentation Anxiety and depression -Continue home medications, no acute change in management Cervical Spinal Stenosis with Myeloradiculopathy | Paresthesia of upper extremity -MRI of c-spine/brain shows evidence of significant cervical spinal stenosis -Ortho spine surgery consulted, appreciate recommendations -Surgery completed this morning, patient recovering comfortably -[place] J collar at present -Patient notes some ongoing paresthesias of bilateral upper extremities but symptoms are stable. 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 -Patient denies weakness and other strokelike deficits, but does note she thinks she may have had some strokelike findings on a CT many years ago. Diabetes -Diet controlled since significant weight loss following bariatric surgery. -Sliding scale as needed goal BSG 110-150 History of cardiac cath -Patient reports she has never had chest pain, this was performed for shortness of breath prior to having weight loss and was normal many years ago. Shortness of breath was found to be due to weight and improved after her weight loss. 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 vitals noted laying in bed facial bruising hard collar on Cspine breathing unlabored no accessory muscles good effort skin no rashes no pallor or icterus neuro no focal deficits, drain in place serosanguanous output traumatic syncope - on multiple revisits of HPI she recalls no prodrome. monitoring here, EKG, echo all reassuring, but hx is not. loop recorder thursday. it is possible that this was a "vasaoactive" event (such as orthostasis) and the lack of prodrome was due to concussion/amnesia, but would reach that conclusion by exclusion Cspine trauma and severe Cspine stenosis - hard collar, post op. appreciate ortho/spine input pharmacologic DVT proph on hold due to spine surgery; SCDs ordered for now Subjective Patient seen and examined at bedside. Resting comfortably post-op, notes some throat discomfort with talking and swallowing but feeling well. Review of Systems Review of Systems: As per above Physical Exam Constitutional: comfortable; no acute distress Eyes: + anicteric sclerae; no conjunctival abn ormality ENMT: Ears: no external ear abnormality Nose: no external nose abnormality Neck: [place]-J collar in place Respiratory: normal respiratory effort; does not use accessory muscles Cardiovascular: Limbs well perfused Gastrointestinal (Abdomen): Inspection/Auscultation: abdomen not distended Neurologic: awake Psychiatric: A+Ox3, euthymic affect Results & Data Results & Data Vital Signs (Past 12 Hours) Vital Signs Temp Pulse Pulse Resp BP Pulse Ox O2 Del Method 10/30/23 06:55 36.6 C 62 20 166/95 H 95 Room Air 10/30/23 02:58 36.7 C 76 20 162/73 H 96 Room Air 10/29/23 23:00 36.7 C 73 16 148/74 H 95 Room Air 10/29/23 22:05 69 Resident Activity Tracking Resident Involvement: Resident Care Provided Care Provided: Adult Hospital Medicine
[2023-10-30] MEDS ORDERED: FLOSEAL HEMOSTATIC MATRIX 10ML TOP ONE (08:28)
--- NOTE | 2023-10-30 09:23 | Operative Report ---
Post Operative Report Pre & Post Diagnosis Operation Date: 10/30/23 07:45 Pre-Op Diagnosis: Myelopathy concurrent with and due to spinal stenosis of cervical region Post-Op Diagnosis: Myelopathy concurrent with and due to spinal stenosis of cervical region I identified the patient and participated in the time-out.: Yes Procedure Operation Date: 10/30/23 07:45 Actual Procedures #1 anterior cervical corpectomy with bilateral foraminotomies C5. #2 anterior cervical arthrodesis C4-C6. #3 placement of peek 23 mm cage C4-C6. #4 placement locally harvested morselized autograft combined with I factor interbody cage. #5 application of K2 M plate and screws from C4-C6. Surgeon Miles Cuevas, DO Customs Investigator Gregory Buenrostro Estimated Blood Loss 10 Findings Consistent with Post-Op Diagnosis Specimens None Indications This is a 78-year-old female who presents above-mentioned diagnosis is here for urgent decompression and fusion. Description of Procedure Patient was met with identified informed consent obtained. Patient was then taken operative suite underwent patient placed in spine position on the Silver table with a head Strong lateral. All bony prominences well-padded eyes inspected to ensure no external pressure placed upon the. This point the anterior cervical spine was prepped draped sterile fashion. The assistance of fluoroscopy identified the C5 vertebral body and a transverse incision was placed on the right anterior aspect the cervical spine overlying this region. Blunt dissection with the assistance of bipolar cautery as well as down to expose the anterior cervical spine from C4-C6. 17 retractors placed. Informed complete discectomy C4-C5 5 to the uncovertebral notch bilaterally followed by C5-C6. [place] distraction pins were then placed in C4 and see 6 to distract across the C5 vertebral body. Complete corpectomy was then performed including removal of all posterior annular fibers longitudinal ligament including bilateral foraminotomies addressing severe spinal stenosis. The endplates were then burred to subcortical mean bone and the 23 mm peek cage filled with locally harvested morselized autograft and I factor tapped in position. Distracting apparatus was removed and a K2 M plate and screws applied with the assistance of fluoroscopy. The incision was then copiously irrigated explored to ensure no damage to surrounding structures remaining bleeding. 10 round MARITA drain inserted. The incision was then closed with 2 Vicryl in the fascia and 4 Monocryl for final skin closure. Steri-Strips sterile dressing placed. Patient waken taken to PACU stable condition. Please note spinal cord monitoring visualized at the procedure no changes noted. Lastly Gregory Buenrostro was present at the entire surgeon on patient positioning complex portion of the surgery and final skin closure. I attest to the content of the Intraoperative Record and any orders documented therein. Any exceptions are noted below.
--- NOTE | 2023-10-30 10:06 | Fluoroscopy Report ---
FL cervical 2-3V CLINICAL HISTORY: C5 ANTERIOR CERVICAL CORPECTOMY COMPARISON STUDY: None. FLUOROSCOPY TIME: 8 seconds. FLUOROSCOPY IMAGES: 2 Ka,r: 0.8 mGy FINDINGS: Anterior cervical discectomy and fusion from C4 through C6 with C5 corpectomy and bone xuan t. The hardware appears intact. The endotracheal tube is partially visualized. There is a surgical sp onge at the incision site within the anterior neck. IMPRESSION: Fluoroscopic assistance as above. ACT 112: Negative or not required by law. Electronically signed by: Alexey Dos Santos M.D. 10/30/2023 10:05 AM
--- NOTE | 2023-10-30 10:28 | Anesthesiology Progress Note ---
Date of Service October 30, 2023 Anesthesia Post Procedure Vital Signs Vital Signs: Temp Pulse Pulse Resp BP Pulse Ox O2 Del Method 10/30/23 10:20 98.1 F 75 12 174/82 H 95 Nasal Cannula 10/30/23 10:10 73 13 167/82 H 95 Nasal Cannula 10/30/23 10:00 79 17 174/86 H 98 Oxymask 10/30/23 09:50 79 18 180/85 H 97 Oxymask 10/30/23 09:44 96.8 F L 83 17 154/101 H 97 Oxymask 10/30/23 06:55 97.9 F 62 20 166/95 H 95 Room Air 10/30/23 02:58 98.1 F 76 20 162/73 H 96 Room Air 10/29/23 23:00 98.1 F 73 16 148/74 H 95 Room Air 10/29/23 22:05 69 10/29/23 19:25 98.4 F 73 20 154/77 H 94 Room Air 10/29/23 15:20 98.1 F 72 19 161/73 H 94 Room Air 10/29/23 14:02 73 10/29/23 11:31 97.5 F L 70 18 156/84 H 93 Room Air O2 Flow Rate 10/30/23 10:20 2 10/30/23 10:10 2 10/30/23 10:00 10 10/30/23 09:50 10 10/30/23 09:44 10 10/30/23 06:55 10/30/23 02:58 10/29/23 23:00 10/29/23 22:05 10/29/23 19:25 10/29/23 15:20 10/29/23 14:02 10/29/23 11:31 Pain Intensity Anterior Neck: Pain Intensity: 5 Transfer of Care Handoff Completed per policy Notes Mental Status: alert / awake / arousable and participated in evaluation Patient Amnestic to Procedure: Yes Nausea / Vomiting: adequately controlled Pain: adequately controlled Airway Patency, RR, SpO2: stable & adequate BP & HR: stable & adequate Hydration State: stable & adequate Anesthetic Complications: no major complications apparent and Pt Satisfied with anesthetic care
[2023-10-30] MEDS ORDERED: diphenhydrAMINE Capsule 25 MG CAP PO PRN (10:41)
[2023-10-30] MEDS ORDERED: MAGNESIUM HYDROXIDE SUSP 30 ML UDC PO PRN (10:41)
[2023-10-30] MEDS ORDERED: oxyCODONE HCL IR 5 MG TAB (IMMEDIATE RELEASE) PO PRN (10:41)
[2023-10-30] MEDS ORDERED: traMADol HCL 50 MG TABLET PO PRN (10:41)
[2023-10-30] MEDS ORDERED: LORazepam 0.5 MG TAB PO PRN (10:41)
[2023-10-30] MEDS ORDERED: hydrOXYzine HCl 25 MG TAB PO PRN (10:41)
[2023-10-30] MEDS ORDERED: SOD PHOSPHATE/SOD BIPHOSPHATE ENEMA 132 ML BTL PR PRN (10:41)
[2023-10-30] MEDS ORDERED: DO NOT ADMINISTER FLU VACCINE PRN (10:41)
[2023-10-30] MEDS ORDERED: DO NOT ADMINISTER PNEUMOCOCCAL VACCINE PRN (10:41)
[2023-10-30] MEDS ORDERED: RACEPINEPHRINE 2.25% NEBU SOLN 0.5 ML VIAL INH PRN (10:41)
[2023-10-30] MEDS ORDERED: HYDROmorphone INJ 1 MG/ML SYRINGE IV PRN (10:41)
[2023-10-30] MEDS ORDERED: dexAMETHasone 8 MG in SYRINGE 0 ML IV PRN (10:41)
[2023-10-30] MEDS ORDERED: LORazepam 0.5 MG in SYRINGE 0.25 ML IV PRN (10:41)
[2023-10-30] MEDS ORDERED: ALUMINUM/MAGNESIUM SUSP 30 ML UDC PO PRN (10:41)
[2023-10-30] MEDS ORDERED: FAMOTIDINE 20 MG TAB PO PRN (10:41)
[2023-10-30] MEDS ORDERED: METOCLOPRAMIDE HCL INJ 5 MG/ML 2 ML VIAL IV PRN (10:41)
[2023-10-30] MEDS ORDERED: bisacodyL 10 MG SUPP PR PRN (10:41)
[2023-10-30] MEDS ORDERED: NALOXONE HCL 0.4 MG/1 ML VIAL/CARP IV PRN (10:41)
[2023-10-30] MEDS ORDERED: PROMETHAZINE HCL 12.5 MG in SODIUM CHLORIDE 0.9% 50 ML IV PRN (10:41)
[2023-10-30] MEDS ORDERED: ONDANSETRON 4 MG OD TAB PO PRN (10:41)
[2023-10-30] MEDS ORDERED: HYDROmorphone INJ 0.5 MG/0.5 ML SYR IV PRN (10:41)
[2023-10-30] MEDS ORDERED: ACETAMINOPHEN 1,000 MG/100 ML VIAL IV PRN (10:41)
[2023-10-30] MEDS ORDERED: SUGAMMADEX SODIUM 200 MG/2 ML VIAL IV ONE (11:00)
[2023-10-30] MEDS: busPIRone 5 MG TAB PO SCH ×2 (11:28→20:01)
[2023-10-30] MEDS: CYANOCOBALAMIN (B-12) 500 MCG TABLET PO SCH (11:28)
[2023-10-30] MEDS: CALCIUM 600MG + VIT D 400 IU TAB PO SCH ×2 (11:28→20:01)
[2023-10-30] MEDS: hydroCHLOROthiazide 25 MG TAB PO SCH (11:29)
[2023-10-30] MEDS: DULoxetine HCL 60 MG CAP PO SCH (11:29)
[2023-10-30] MEDS: VENLAFAXINE HCL XR 37.5 MG CAPXR PO SCH (11:30)
[2023-10-30] MEDS: PANTOprazole 40 MG TAB PO SCH (11:30)
[2023-10-30] MEDS: LACTATED RINGER'S 1,000 ML IV SCH ×2 (11:39→21:30)
--- NOTE | 2023-10-30 14:11 | Cardiology Consultation ---
Date of Consultation October 30, 2023 Assessment & Plan (1) Syncope and collapse: (2) CHI (closed head injury): (3) Fracture of nasal bone: (4) Forehead contusion: (5) Myelopathy concurrent with and due to spinal stenosis of cervical region: Plan Mrs. Ceja is a 78 year old female with a history of Anxiety/Depression, Obesity s/p Gastric Bypass, Type 2 Diabetes Mellitus, Overactive Bladder, Minimal Carotid Plaque at the Left Carotid Bifurcation, Hypertension, and Dyslipidemia who was admitted to [facility] on 10/28/23 after sustaining a Syncopal Episode resulting in a Closed Head Injury and BUE Paresthesias secondary to Cervical Spinal Stenosis/Cervical Myelopathy. She underwent C-spine surgery earlier today and tolerated it well. Her Syncopal Episode is very concerning for being Cardiogenic as she had no warning or prodromal symptoms. Patient was in her usual state of health on 10/28/23 and states that while walking to kitchen she must have suddenly collapsed because she woke up on the floor with head and facial pain, BUE paresthesias, and mild confusion. Patient denies any prodromal warning symptoms at all -- she specifically denies any prodromal nausea, diaphoresis, lightheadedness, dizziness, weakness, palpitations, dyspnea, or chest discomfort. Admittedly she did hit her head so there is a possibility she does not recall all of the details -- but she does feel confident in saying "I did not have any warning symptoms." After she regained consciousness, she got up off of the floor, cleaned up the blood and broken glass, and then sat down at the table to wait for her to come home from a meeting at the [employer]. Her immediately checked her blood sugar and it was 131 mg/dL. Her syncopal event was not witnessed. In the past she has had sporadic episodes of lightheadedness/syncope related to hypoglycemia but she has very obvious and consistent warning symptoms when she is hypoglycemic -- and they did not happen with this event. I also spoke to the patient's and he recalls at least 5 syncopal episodes over the past 3 years that were mostly associated with hypoglycemia but 1 or 2 episodes he is not sure of. Cardiac monitoring has been benign showing NSR at normal rates. EKG 10/28/23 shows NSR at 68 bpm with left axis deviation, abnormal EKG. When compared to 03/03/2008 tracing; No significant change. Echocardiogram 10/28/23 shows normal LV size and systolic function. Mild concentric LVH. LVEF 60% to 65% with normal wall motion. No evidence of interatrial shunt on bubble study. No prior studies available for comparison. Chemistry Panel remarkable for elevated blood sugars, elevated BUN with a normal creatinine. CBC shows a normal H&H. We discussed possible causes of syncope -- including conduction disease, heart block, bradycardia, hemodynamically unstable tachyarrhythmias, vasovagal causes, dehydration, hypotension, hypoglycemia. It is reassuring that she has normal LV/bi-ventricular systolic function. We recommend further evaluation. Continue playground monitor through the weekend -- we will plan to proceed with an Implantable Loop Recorder on Thursday. Patient and her agree with this plan. We will continue to follow closely. History of Present Illness Reason for Consultation: -- Syncope/Traumatic Syncope. -- Recurrent Syncope. Requesting Physician: Alex Solorzano MD Attending Physician: Jonathan Nieto MD History of Present Illness Mrs. Ceja is a 78 year old female with a history of Anxiety/Depression, Obesity s/p Gastric Bypass, Type 2 Diabetes Mellitus, Overactive Bladder, Minimal Carotid Plaque at the Left Carotid Bifurcation, Hypertension, and Dyslipidemia who was admitted to [facility] on 10/28/23 after sustaining a Syncopal Episode resulting in a Closed Head Injury and BUE Paresthesias secondary to Cervical Spinal Stenosis/Cervical Myelopathy. She underwent C-spine surgery earlier today and tolerated it well. Patient was in her usual state of health on 10/28/23 and states that while walking to kitchen she must have suddenly collapsed because she woke up on the floor with head and facial pain, BUE paresthesias, and mild confusion. Patient denies any prodromal warning symptoms at all -- she specifically denies any prodromal nausea, diaphoresis, lightheadedness, dizziness, weakness, palpitations, dyspnea, or chest discomfort. Admittedly she did hit her head so there is a possibility she does not recall all of the details -- but she does feel confident in saying "I did not have any warning symptoms." After she regained consciousness, she got up off of the floor, cleaned up the blood and broken glass, and then sat down at the table to wait for her to come home from a meeting at the [employer]. Her immediately checked her blood sugar and it was 131 mg/dL. Her syncopal event was not witnessed. In the past she has had very rare lightheadedness/syncope related to hypoglycemia but she has very obvious and consistent warning symptoms when she is hypoglycemic -- and they did not happen with this event. Cardiac monitoring has been benign showing NSR at normal rates. EKG 10/28/23 shows NSR at 68 bpm with left axis deviation, abnormal EKG. When compared to 03/03/2008 tracing; No significant change. Echocardiogram 10/28/23 shows normal LV size and systolic function. Mild concentric LVH. LVEF 60% to 65% with normal wall motion. No evidence of interatrial shunt on bubble study. No prior studies available for comparison. Chemistry Panel remarkable for elevated blood sugars, elevated BUN with a normal creatinine. CBC shows a normal H&H. I also spoke to the patient's and he recalls at least 5 syncopal episodes over the past 3 years that were mostly associated with hypoglycemia but 1 or 2 episodes he is not sure of. Allergies Allergy/AdvReac Type Severity Reaction Status Date / Time celecoxib AdvReac Unknown SKIN Verified 09/07/23 08:00 [place] Home Medications Medication Instructions Recorded Confirmed Type aspirin 81 mg tablet,delayed 81 mg PO QPM 08/14/23 10/28/23 History release atorvastatin 40 mg tablet 40 mg PO QPM 08/14/23 10/28/23 History buspirone 5 mg tablet 5 mg PO BID 08/14/23 10/28/23 History calcium carbonate 600 mg-vitamin 1 tab PO BID 08/14/23 10/28/23 History D3 5 mcg (200 unit) tablet cholecalciferol (vitamin D3) 50 50 mcg PO QPM 08/14/23 10/28/23 History mcg (2,000 unit) capsule (Vitamin D3) cyanocobalamin (vitamin B-12) 1,000 mcg PO QAM 08/14/23 10/28/23 History 1,000 mcg tablet (Vitamin B-12) duloxetine 60 mg capsule,delayed 60 mg PO QAM 08/14/23 10/28/23 History release esomeprazole magnesium 20 mg 20 mg PO QAM 08/14/23 10/28/23 History tablet,delayed release ferrous sulfate 325 mg (65 mg 65 mg PO HS 08/14/23 10/28/23 History iron) capsule,extended release hydrochlorothiazide 25 mg tablet 25 mg PO QAM 08/14/23 10/28/23 History losartan 100 mg tablet 100 mg PO QPM 08/14/23 10/28/23 History magnesium 250 mg tablet 250 mg PO QPM 08/14/23 10/28/23 History potassium chloride 10 mEq 10 meq PO .EVERY OTHER DAY 08/14/23 10/28/23 History tablet,extended release venlafaxine 37.5 mg 37.5 mg PO QAM 08/14/23 10/28/23 History capsule,extended release 24 hr amoxicillin 500 mg capsule 2,000 mg PO .1 HR BEFORE CAROL ANN PRN 10/28/23 10/28/23 History dental latanoprost 0.005 % eye drops 1 drp ophthalmic (eye) HS 10/28/23 10/28/23 History Patient History Medical History History of hypoglycemia December 2022 , low sugar...non responsive - hospitalized at [facility]. Determined to have low potassium and dehydration. No re-occurence. PCP has records. History of COVID-13 Sep 2021. Glaucoma Overactive bladder mostly at night.ongoing for yrs. History of colitis mild.showed up on a ct scan. Emphysema lung mild/no medical tx ever in hx. Asthma mild/no medical tx ever in hx. History of sleep apnea resolved after weight loss sx. Arthritis Anxiety and depression Low iron hx Acid reflux Hyperlipidemia HTN (hypertension) Diabetes diet controlled/improved after weight loss surgery. Surgical History Hx of left cataract extraction w/ left I stent injection History of cardiac cath remote hx...sob...[place]...no stent(s). History of total right knee replacement History of left knee replacement History of gastric bypass February 2012. History of colonoscopy Social History Smoking Status: Former smoker Tobacco Type: Cigarettes Second Hand Exposure: No; Do You Dip or Chew Tobacco: No; Hx Alcohol Use: Yes Alcohol type: wine Hx Substance Use: No Preferred Language: Occitan Communication Ability: Effective Ep Specialist Required: No Beliefs That Will Affect Care: None Current Living Situation: Spouse Current Living Situation Comment: and dog and cat Feels Safe at Home: Yes Safety Concerns: Feels Safe At This Time Assistive Devices: None Review of Systems Review of Systems: -- UE paresthesias seem to be getting be tter following surgical decompression, steroids, etc. -- 10 point ROS completed and is negativ e with the exception of what is mentioned in the HPI. Physical Exam Physical Exam: BP 147/69. Pulse 76 and regular, RR 15, SpO2 is 96% on o2 AT 2 L/min via NC.. GENERAL: Patient in no acute distress. HEENT: Facial and forehead ecchymoses and abrasions. EOM's intact. Facies symmetric. No perioral cyanosis. NECK: Neck is obscured by a [place] J collar. CHEST/LUNGS: Clear to auscultation throughout all lung hendricks. No wheezes, rales, or crackles. CVS: S1 and S2 are regular without murmurs, gallops, or rubs. PMI is nonpalpable. No lifts, heaves, or thrills. No abdominal aortic or renal bruits. ABDOMINAL EXAM: Bowel sounds are present. No masses, organomegaly, or tenderness. EXTREMITIES: No clubbing or cyanosis. No edema. Intact radial pulses bilaterally. NEUROLOGIC EXAM: Patient is awake, alert, and oriented. Pleasant and coop erative. Answers questions appropriately. Speech is clear. CLOTHING TRADES WORKERS: -- NSR at normal rates. Results & Data Vital Signs (Past 12 Hours) Vital Signs Temp Pulse Resp BP BP Pulse Ox Pulse Ox 10/30/23 13:45 76 18 147/69 H 96 10/30/23 12:20 36.5 C 77 20 176/93 H 96 10/30/23 11:32 75 16 94 10/30/23 11:11 36.7 C 78 18 169/80 H 95 10/30/23 11:04 36.7 C 78 18 170/90 H 96 10/30/23 11:00 96 10/30/23 10:30 76 12 166/97 H 96 10/30/23 10:20 36.7 C 75 12 174/82 H 95 10/30/23 10:10 73 13 167/82 H 95 10/30/23 10:00 79 17 174/86 H 98 10/30/23 09:50 79 18 180/85 H 97 10/30/23 09:44 36.0 C L 83 17 154/101 H 97 10/30/23 06:55 36.6 C 62 20 166/95 H 95 10/30/23 02:58 36.7 C 76 20 162/73 H 96 Pulse Ox O2 Del Method O2 Del Method O2 Del Method O2 Flow Rate O2 Flow Rate O2 Flow Rate 10/30/23 13:45 Nasal Cannula 2 10/30/23 12:20 Nasal Cannula 2 10/30/23 11:32 Nasal Cannula 2 10/30/23 11:11 Nasal Cannula 2 10/30/23 11:04 Nasal Cannula 2 10/30/23 11:00 96 Nasal Cannula Nasal Cannula 2 2 10/30/23 10:30 Nasal Cannula 2 10/30/23 10:20 Nasal Cannula 2 10/30/23 10:10 Nasal Cannula 2 10/30/23 10:00 Oxymask 10 10/30/23 09:50 Oxymask 10 10/30/23 09:44 Oxymask 10 10/30/23 06:55 Room Air 10/30/23 02:58 Room Air Laboratory Results Laboratory Results - last 24 hr 10/29/23 10/29/23 10/29/23 14:59 16:44 20:15 WBC RBC Hgb Hct MCV MCH MCHC RDW Std Deviation RDW Coeff of Karen Plt Count MPV Immature Gran % (Auto) Neut % (Auto) Lymph % (Auto) Amelia % (Auto) Eos % (Auto) Baso % (Auto) Neut # (Auto) Lymph # (Auto) Amelia # (Auto) Eos # (Auto) Baso # (Auto) Immature Gran # (Auto) Sodium Potassium Chloride Carbon Dioxide Anion Gap BUN Creatinine Est Cr Clr Drug Dosing Est GFR ( Amer) Est GFR (Non-Af Amer) BUN/Creatinine Ratio Glucose POC Glucose 160 H 175 H Calcium Lyme Disease IgG Ab Negative Lyme Disease IgM Ab Negative Blood Type A Negative Antibody Screen NEGATIVE 10/30/23 10/30/23 10/30/23 05:48 06:03 09:46 WBC 9.38 RBC 4.14 L Hgb 13.2 Hct 38.3 MCV 92.5 MCH 31.9 MCHC 34.5 RDW Std Deviation 43.8 RDW Coeff of Karen 12.9 Plt Count 165 MPV 10.2 Immature Gran % (Auto) 0.3 Neut % (Auto) 86.0 Lymph % (Auto) 9.5 Amelia % (Auto) 4.1 Eos % (Auto) 0.0 Baso % (Auto) 0.1 Neut # (Auto) 8.07 H Lymph # (Auto) 0.89 L Amelia # (Auto) 0.38 Eos # (Auto) 0.00 Baso # (Auto) 0.01 Immature Gran # (Auto) 0.03 Sodium 134 L Potassium 3.9 Chloride 101 Carbon Dioxide 23 Anion Gap 10 BUN 36 H Creatinine 1.09 Est Cr Clr Drug Dosing 48.6 Est GFR ( Amer) 57.1 Est GFR (Non-Af Amer) 49.3 BUN/Creatinine Ratio 33.0 H Glucose 185 H POC Glucose 182 H 158 H Calcium 9.1 Lyme Disease IgG Ab Lyme Disease IgM Ab Blood Type Antibody Screen 10/30/23 11:17 WBC RBC Hgb Hct MCV MCH MCHC RDW Std Deviation RDW Coeff of Karen Plt Count MPV Immature Gran % (Auto) Neut % (Auto) Lymph % (Auto) Amelia % (Auto) Eos % (Auto) Baso % (Auto) Neut # (Auto) Lymph # (Auto) Amelia # (Auto) Eos # (Auto) Baso # (Auto) Immature Gran # (Auto) Sodium Potassium Chloride Carbon Dioxide Anion Gap BUN Creatinine Est Cr Clr Drug Dosing Est GFR ( Amer) Est GFR (Non-Af Amer) BUN/Creatinine Ratio Glucose POC Glucose 174 H Calcium Lyme Disease IgG Ab Lyme Disease IgM Ab Blood Type Antibody Screen Diagnostic Findings CXR 10/28/23: FINDINGS: Elevation of the right hemidiaphragm is unchanged. Lungs are clear. There is no pneumothorax or pleural effusion. Cardiomegaly is unchanged. Mediastinal contours are normal. There is no evidence for pulmonary edema. IMPRESSION: -- No acute cardiopulmonary findings. No change in appearance of the chest. MAXILLOFACIAL CT SCAN 10/28/22: A left forehead contusion is present. Globes are intact with no retrobulbar hematoma. No displaced facial fractures are present. Orbital floors are intact. There is an age indeterminate nondisplaced left nasal bone fracture. Alignment of the temporomandibular joints is anatomic. Mastoid air cells are clear. No skull base fracture is present IMPRESSION: 1. Age indeterminate nondisplaced left nasal bone fracture. 2. Left forehead contusion. Globes intact. No retrobulbar hematoma. CT SCAN BRAIN 10/28/23: Brain parenchyma: There is age-related involutional change noting mild to moderate subcortical and periventricular microangiopathic disease. There is no hemorrhage, mass effect, or evidence of acute territorial ischemia by CT criteria. Singleton-white matter differentiation is preserved. No extra-axial fluid collection is seen. Ventricles, sulci, cisterns: Prominent secondary to involutional change. Intracranial vasculature: There is atherosclerotic calcification of the cavernous carotid arteries. Calvarium: The skeletal structures are osteopenic. No depressed calvarial fracture is seen. Soft tissues: There is a left frontal scalp contusion. Sinuses and mastoids: The paranasal sinuses are clear. The mastoid air cells are well pneumatized. Orbits: The bony orbits are grossly intact. There are bilateral ocular lens implants. IMPRESSION: 1. There is no hemorrhage, mass effect, or evidence of acute territorial ischemia by CT criteria. 2. Left frontal scalp contusion. BRAIN MRI 10/28/23: Brain parenchyma: There is age-related involutional change noting mild to moderate subcortical and periventricular microangiopathic disease. There is no hemorrhage or mass effect. There is no restricted diffusion to suggest acute ischemia. Singleton-white matter differentiation is preserved. No extra-axial fluid collection is seen. The cerebellar tonsils are normal in configuration. Ventricles, sulci, and cisterns: Prominent secondary to involutional change. Pituitary and sella: Unremarkable. Intracranial vasculature: Normal flow voids are maintained at the skull base. Orbits: The bony orbits are grossly intact. Orbital contents are normal in appearance noting bilateral ocular lens implants. Sinuses and mastoids: Clear. Calvarium: Unremarkable. Soft tissues: There is left frontal scalp contusion. Cervical cord: Partially visualized cervical spinal cord is normal in morphology and signal intensity. IMPRESSION: -- No acute intracranial abnormality. MRI C-SPINE 10/28/23: Vertebrae: No acute fracture or malalignment. Spinal cord: There is mild edema of the spinal cord at the level of C4 and C5. Soft tissues: Unremarkable. DISCS/SPINAL CANAL/NEURAL FORAMINA: C2-C3: Minimal disc osteophyte compress without significant neural foraminal stenosis or spinal canal stenosis. C3-C4: Disc osteophyte complex and uncovertebral spurs results in mild bilateral neural foraminal stenosis. There is mild spinal canal stenosis. C4-C5: Disc osteophyte complex and uncovertebral spurs of C4-C5 results in moderate bilateral neural foraminal stenosis. There is moderate spinal canal stenosis. C5-C6: Disc osteophyte complex and uncovertebral spurs of C5-C6 results in moderate bilateral neural foraminal stenosis. There is moderate spinal canal stenosis. C6-C7: Disc osteophyte complex and uncovertebral spurs results in moderate bilateral neural foraminal stenosis. There is mild spinal canal stenosis. C7-T1: Mild disc osteophyte complex results in no significant stenosis. IMPRESSION: 1. There is mild edema of the spinal cord at the level of C4 and C5. 2. Disc osteophyte complex and uncovertebral spurs of C4-C5 results in moderate bilateral neural foraminal stenosis. There is moderate spinal canal stenosis. 3. Disc osteophyte complex and uncovertebral spurs of C5-C6 results in moderate bilateral neural foraminal stenosis. There is moderate spinal canal stenosis. Medications Administered Medication List Aspirin (Aspirin 81 Mg Ectab) 81 mg PO QPM REGGIE Stop: 11/27/23 20:59 Last Admin: 10/29/23 20:10 Dose: 81 mg Documented By: Admin: 10/28/23 19:30 Dose: Not Given Documented By: MANOJ Atorvastatin Calcium (Atorvastatin 40 Mg Tab) 40 mg PO QPM REGGIE Stop: 11/27/23 20:59 Last Admin: 10/29/23 20:11 Dose: 40 mg Documented By: Admin: 10/28/23 19:30 Dose: Not Given Documented By: MANOJ Buspirone HCl (Buspirone 5 Mg Tab) 5 mg PO BID REGGIE Stop: 11/27/23 20:59 Last Admin: 10/30/23 11:28 Dose: 5 mg Documented By: Admin: 10/29/23 20:09 Dose: 5 mg Documented By: Admin: 10/29/23 08:41 Dose: 5 mg Documented By: Admin: 10/28/23 19:31 Dose: Not Given Documented By: MANOJ Calcium/Vitamin D (Calcium 600mg + Vit D 400 Iu Tab) 1 tab PO BID REGGIE Stop: 11/27/23 20:59 Last Admin: 10/30/23 11:28 Dose: 1 tab Documented By: Admin: 10/29/23 20:09 Dose: 1 tab Documented By: Admin: 10/29/23 08:41 Dose: 1 tab Documented By: Admin: 10/28/23 19:31 Dose: Not Given Documented By: MANOJ Cyanocobalamin (Cyanocobalamin (B-12) 500 Mcg Tablet) 1,000 mcg PO [facility] Stop: 11/28/23 08:59 Last Admin: 10/30/23 11:28 Dose: 1,000 mcg Documented By: Admin: 10/29/23 08:42 Dose: 1,000 mcg Documented By: NAHUM Duloxetine HCl (Duloxetine Hcl 60 Mg Cap) 60 mg PO [facility] Stop: 11/28/23 08:59 Last Admin: 10/30/23 11:29 Dose: 60 mg Documented By: Admin: 10/29/23 08:42 Dose: 60 mg Documented By: NAHUM Fentanyl Citrate (Fentanyl Citrate Pf 100 Mcg/2 Ml Vial) 50 mcg IV Q5M PRN PRN Reason: PACU Use Only-Pain Stop: 10/30/23 15:13 Last Admin: 10/30/23 10:16 Dose: 50 mcg Documented By: ALEXX Ferrous Sulfate (Ferrous Sulfate 325 Mg Tab) 325 mg PO HS [facility] Stop: 11/27/23 20:59 Last Admin: 10/29/23 20:10 Dose: 325 mg Documented By: Admin: 10/28/23 19:31 Dose: Not Given Documented By: MANOJ Hydrochlorothiazide (Hydrochlorothiazide 25 Mg Tab) 25 mg PO [facility] Stop: 11/28/23 08:59 Last Admin: 10/30/23 11:29 Dose: 25 mg Documented By: Admin: 10/29/23 08:44 Dose: 25 mg Documented By: NAHUM Acetaminophen (Ofirmev) 1,000 mg in 100 mls @ 400 mls/hr IV Q8H PRN PRN Reason: Pain Rating 1-3 & Pre PT Stop: 10/31/23 10:41 Last Infusion: 10/30/23 12:48 Dose: Infused Documented By: Admin: 10/30/23 12:33 Dose: 400 mls/hr Documented By: BELINDA Lactated Ringer's (Lr) 1,000 mls @ 100 mls/hr IV .Q10H [facility] Stop: 11/29/23 10:40 Last Admin: 10/30/23 11:39 Dose: 100 mls/hr Documented By: BELINDA Insulin Aspart (Insulin Aspart Per Unit Charge) 0 units SC Q6 REGGIE Stop: 11/29/23 05:59 Last Admin: 10/30/23 12:38 Dose: 1 units Documented By: BELINDA Co-signed By: OLIVIA Admin: 10/30/23 05:52 Dose: 1 units Documented By: ANDREW Co-signed By: ANDREW Latanoprost (Latanoprost 0.005% Op Soln 2.5 Ml Btl) 1 drops OP HS [facility] Stop: 11/27/23 20:59 Last Admin: 10/29/23 20:10 Dose: 1 drops Documented By: Admin: 10/28/23 20:40 Dose: 1 drops Documented By: MANOJ Losartan Potassium (Losartan Potassium 50 Mg Tab) 100 mg PO QPM [facility] Stop: 11/27/23 20:59 Last Admin: 10/29/23 20:10 Dose: 100 mg Documented By: Admin: 10/28/23 19:31 Dose: Not Given Documented By: MANOJ Magnesium Oxide (Magnesium Oxide 400 Mg Tab) 400 mg PO QPM [facility] Stop: 11/27/23 20:59 Last Admin: 10/29/23 20:11 Dose: 400 mg Documented By: Admin: 10/28/23 19:32 Dose: Not Given Documented By: MANOJ Pantoprazole Sodium (Pantoprazole 40 Mg Tab) 40 mg PO QAM [facility] Stop: 11/28/23 08:59 Last Admin: 10/30/23 11:30 Dose: 40 mg Documented By: Admin: 10/29/23 08:41 Dose: 40 mg Documented By: NAHUM Potassium Chloride (Potassium Chloride 10 Meq Tabcr) 10 meq PO Q2D [facility] Stop: 11/28/23 08:59 Last Admin: 10/29/23 08:43 Dose: 10 meq Documented By: NAHUM Venlafaxine HCl (Venlafaxine Hcl Xr 37.5 Mg Capxr) 37.5 mg PO QAM [facility] Stop: 11/28/23 08:59 Last Admin: 10/30/23 11:30 Dose: 37.5 mg Documented By: Admin: 10/29/23 08:44 Dose: 37.5 mg Documented By: NAHUM Vitamin D (Cholecalciferol 1,000 Units 25 Mcg Tab) 2,000 units PO QPM REGGIE Stop: 11/27/23 20:59 Last Admin: 10/29/23 20:11 Dose: 2,000 units Documented By: Admin: 10/28/23 19:31 Dose: Not Given Documented By: MANOJ Discontinued Medications Cefazolin Sodium (Cefazolin 330 Mg/Ml 1 Gm Vial) Confirm Administered Dose 990 mg .ROUTE .STK-MED ONE Stop: 10/30/23 07:19 Last Admin: 10/30/23 09:17 Dose: 1,000 mg Documented By: KENIA Cefazolin Sodium (Cefazolin 2,000 Mg/15 Ml Iv Push) Confirm Administered Dose 2,000 mg IV .STK-MED ONE Stop: 10/30/23 07:38 Last Admin: 10/30/23 07:44 Dose: 2,000 mg Documented By: [id number] Dexamethasone 8 mg/ Syringe 2 mls @ 1 mls/min IV Q8H [facility] Stop: 11/27/23 20:59 Last Admin: 10/30/23 04:41 Dose: 1 mls/min Documented By: Admin: 10/29/23 20:09 Dose: 1 mls/min Documented By: Admin: 10/29/23 13:04 Dose: 1 mls/min Documented By: Admin: 10/29/23 03:36 Dose: 1 mls/min Documented By: Admin: 10/28/23 21:50 Dose: 1 mls/min Documented By: MANOJ Insulin Aspart (Insulin Aspart Per Unit Charge) 0 units SC ACHS [facility] Stop: 11/27/23 16:29 Last Admin: 10/29/23 20:43 Dose: 1 units Documented By: ANDREW Co-signed By: MAMI Admin: 10/29/23 17:37 Dose: 1 units Documented By: NAHUM Co-signed By: GPIván Admin: 10/29/23 13:02 Dose: 1 units Documented By: NHAUM Co-signed By: GPIván Admin: 10/29/23 08:52 Dose: 1 units Documented By: NAHUM Co-signed By: DTT Admin: 10/28/23 21:05 Dose: Not Given Documented By: MANOJ Co-signed By: chip silo tender: 10/28/23 17:17 Dose: Not Given Documented By: JEANNINE Lorazepam (Lorazepam 0.5 Mg Tab) 0.5 mg PO NOW STA Stop: 10/29/23 10:58 Last Admin: 10/29/23 11:50 Dose: 0.5 mg Documented By: NAHUM Miscellaneous ( Floseal Hemostatic Matrix 10ml) 10 ml TOP ONCE ONE Stop: 10/30/23 08:29 Last Admin: 10/30/23 09:18 Dose: 15 ml Documented By: KENIA PG Care Time/CCT Total # of Minutes Spent Total Time Spent with Patient: Total time spent is greater than 50% in coordination of care (as documented) at patient's floor/unit and/or counseling patient:44 [place] [address] INT INP/OBS CARE 2/55MIN Patient Type New History Comprehensive Exam Comprehensive Medical Decision Making Moderate Complexity Diagnoses Syncope and collapse R55 Closed head injury, subsequent encounter S09.90XD Encounter type: subsequent encounter Closed fracture of nasal bone with routine healing, subsequent encounter S02.2XXD Encounter type: subsequent encounter Fracture type: closed Fracture healing: with routine healing Contusion of forehead, subsequent encounter S00.83XD Encounter type: subsequent encounter Myelopathy concurrent with and due to spinal stenosis of cervical region M48.02; G99.2 Time Spent (min) 62 (2) CHI (closed head injury) Encounter type: subsequent encounter Qualified Code(s): S09.90XD - Unspecified injury of head, subsequent encounter (3) Fracture of nasal bone Encounter type: subsequent encounter Fracture type: closed Fracture healing: with routine healing Qualified Code(s): S02.2XXD - Fracture of nasal bones, subsequent encounter for fracture with routine healing (4) Forehead contusion Encounter type: subsequent encounter Qualified Code(s): S00.83XD - Contusion of other part of head, subsequent encounter
[2023-10-30] MEDS: ceFAZolin 2000MG 2,000 MG/15 ML SYR IV SCH ×2 (16:29→22:43)
[2023-10-30] MEDS: MAGNESIUM OXIDE 400 MG TAB PO SCH (20:01)
[2023-10-30] MEDS: LOSARTAN POTASSIUM 50 MG TAB PO SCH (20:02)
[2023-10-30] MEDS: ASPIRIN 81 MG ECTAB PO SCH (20:02)
[2023-10-30] MEDS: CHOLECALCIFEROL 1,000 UNITS 25 MCG TAB PO SCH (20:02)
[2023-10-30] MEDS: ATORVASTATIN 40 MG TAB PO SCH (20:02)
[2023-10-30] MEDS: LATANOPROST 0.005% OP SOLN 2.5 ML BTL OP SCH (20:02)
[2023-10-30] MEDS: DOCUSATE SODIUM/SENNA 50/8.6MG TAB PO SCH (20:03)
[2023-10-30] MEDS: FERROUS SULFATE 325 MG TAB PO SCH (20:03)
--- NOTE | 2023-10-30 20:16 | Billing Data ---
Date of Service October 30, 2023 Coding Level of Care Code 59768 SUB INP/OBS CARE
[2023-10-30] MEDS: ACETAMINOPHEN 500 MG TAB PO PRN (22:43)
[2023-10-31] MEDS: LACTATED RINGER'S 1,000 ML IV SCH ×2 (05:20→17:36)
[2023-10-31] MEDS: POLYETHYLENE (MIRALAX) 17 GM PACK PO SCH ×4 (05:24→23:07)
[2023-10-31 06:21] LABS: Basophils # (auto) 0.01 K/uL (0.00-0.20); Basophils % (auto) 0.1 %; Eosinophils # (auto) 0.01 K/uL (0.00-0.50); Eosinophils % (auto) 0.1 %; Hematocrit (blood only) 37.2 % (37.0-47.0); Hemoglobin 12.5 g/dl (12.0-16.0); Immature Granulocytes # (auto) 0.05 K/uL (0.01-0.20); Immature Granulocytes % (auto) 0.6 %; Lymphocytes # (auto) 1.75 K/uL (1.20-3.40); Lymphocytes % (auto) 20.2 %; Mean Corpuscular Hemoglobin 31.8 pg (25.0-34.0); Mean Corpuscular Hgb Conc 33.6 g/dL (32.0-36.0); Mean Corpuscular Volume 94.7 fL (80.0-100.0); Mean Platelet Volume 10.5 fL (9.4-12.4); Monocytes # (auto) 0.73 K/uL (0.11-0.59); Monocytes % (auto) 8.4 %; Neutrophils # (auto) 6.12 K/uL (1.40-6.50); Neutrophils % (auto) 70.6 %; Platelet Count 136 K/uL (130-400); RDW Coefficient of Variation 12.9 % (11.5-14.5); RDW Standard Deviation 44.9 fL (36.4-46.3); Red Blood Count 3.93 M/uL (4.20-5.40); White Blood Count 8.67 K/ul (4.8-10.8)
[2023-10-31 06:34] LABS: BUN Creatinine Ratio 26.2 (10-20); Calcium 8.7 mg/dl (8.6-10.3); Creatinine Clr Calc Pharmacy 49.5 ml/min; Est GFR (African American) 58.4 ml/min; Est GFR (Non-African American) 50.4 ml/min; Potassium 3.8 mmol/L (3.5-5.1)
--- NOTE | 2023-10-31 07:50 | Hospitalist Progress Note ---
Date of Service October 31, 2023 Assessment & Plan (1) Paresthesia of upper extremity: (2) History of gastric bypass: (3) History of cardiac cath: (4) Diabetes: (5) Syncope and collapse: (6) CHI (closed head injury): Daljit Carrion is a 78-year-old female with a past medical history of cataract surgery, diabetes, anxiety/depression, who presented after a fall 1 day [employer]. She did strike her head and has a forehead contusion on ER evaluation. Patient has shooting pain in her upper extremities bilaterally. Suddenly passed out on 10/27 without warning- no lightheadedness, dizziness, and had normal blood sugar at the time. Syncope without Prodrome -No prodrome, no lightheadedness/dizziness preceding this. Denies orthostatic symptoms. -Sudden onset syncope with facial injury highly concerning for cardiogenic syncope. Normal sinus rhythm on admission. Denies chest pain/chest pressure/exertional angina. -Echo completed: left ventricular systolic function normal, no regional wall motion abnormalities, mild concentric LVH, EF 60-65% -Patient denies history of arrhythmia, telemetry and EKG unrevealing at present -Cardiology consulted, appreciate recommendations -Per note, planning for loop recorder placement on Thursday -Continue monitoring on telemetry CHI (closed head injury) -With syncope evaluation is noted. No ICH. -Forehead contusion with ecchymosis -Normal mentation Anxiety and depression -Continue home medications, no acute change in management Cervical Spinal Stenosis with Myeloradiculopathy | Paresthesia of upper extremity -MRI of c-spine/brain shows evidence of significant cervical spinal stenosis -Ortho spine surgery consulted, appreciate recommendations -S/p Anterior Cervical Corpectomy 10/30 -[place] J collar at present Diabetes -Diet controlled since significant weight loss following bariatric surgery. -Sliding scale as needed goal BSG 110-150 History of cardiac cath -Patient reports she has never had chest pain, this was performed for shortness of breath prior to having weight loss and was normal many years ago. Shortness of breath was found to be due to weight and improved after her weight loss. 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 no other new complaints. working with therapy when i see her. vitals noted laying in bed facial bruising hard collar on Cspine breathing unlabored no accessory muscles good effort skin no rashes no pallor or icterus neuro no focal deficits traumatic syncope - on multiple revisits of HPI she recalls no prodrome. monitoring here, EKG, echo all reassuring, but hx is not. for loop recorder thursday. it is possible that this was a "vasaoactive" event (such as orthostasis) and the lack of prodrome was due to concussion/amnesia, but would reach that conclusion by exclusion. Cspine trauma and severe Cspine stenosis - hard collar, post op. appreciate ortho/spine input. PT/OT eval and treat. pain reasonable pharmacologic DVT proph on hold due to spine surgery; SCDs ordered for now Subjective Sheyla doing well this morning. Notes increased shoulder pain and little bit of a sore throat. Otherwise doing well. Review of Systems Review of Systems: As per above Physical Exam Physical Exam: Constitutional: well-appearing, no acute distress HEENT: NCAT, no conjunctival injection CV: regular rhythm, no murmur appreciated, extremities well-perfused, no LE edema Resp: CTABL, no wheezes/rales/rhonchi appreciated, no increased work of breathing MSK: no gross deformities appreciated [place] J collar intact Strength intact bilateral upper and lower extremities Skin: warm, dry, no rash appreciated Neuro: alert, oriented, no focal neurologic deficit appreciated Results & Data Results & Data Vital Signs (Past 12 Hours) Vital Signs Temp Pulse Pulse Resp BP Pulse Ox O2 Del Method 10/31/23 07:11 36.8 C 62 18 173/77 H 93 Room Air 10/31/23 05:11 36.6 C 58 L 16 162/82 H 96 Nasal Cannula 10/31/23 03:17 68 16 97 Nasal Cannula 10/30/23 22:13 69 16 96 Nasal Cannula 10/30/23 21:11 36.4 C L 65 16 176/84 H 96 Nasal Cannula 10/30/23 20:41 Nasal Cannula 10/30/23 20:31 16 98 Nasal Cannula 10/30/23 19:51 36.7 C 62 17 175/85 H 97 Nasal Cannula O2 Flow Rate 10/31/23 07:11 10/31/23 05:11 1 10/31/23 03:17 1 10/30/23 22:13 1 10/30/23 21:11 1 10/30/23 20:41 1 10/30/23 20:31 2 10/30/23 19:51 2 Resident Activity Tracking Resident Involvement: Resident Care Provided Care Provided: Adult Hospital Medicine (6) CHI (closed head injury) Encounter type: subsequent encounter Qualified Code(s): S09.90XD - Unspecified injury of head, subsequent encounter
[2023-10-31] MEDS: ACETAMINOPHEN 500 MG TAB PO PRN (08:02)
[2023-10-31] MEDS: DULoxetine HCL 60 MG CAP PO SCH (08:03)
[2023-10-31] MEDS: busPIRone 5 MG TAB PO SCH ×2 (08:04→20:03)
[2023-10-31] MEDS: PANTOprazole 40 MG TAB PO SCH (08:04)
[2023-10-31] MEDS: VENLAFAXINE HCL XR 37.5 MG CAPXR PO SCH (08:04)
[2023-10-31] MEDS: CALCIUM 600MG + VIT D 400 IU TAB PO SCH ×2 (08:05→20:04)
[2023-10-31] MEDS: CYANOCOBALAMIN (B-12) 500 MCG TABLET PO SCH (08:05)
[2023-10-31] MEDS: hydroCHLOROthiazide 25 MG TAB PO SCH (08:06)
[2023-10-31] MEDS: POTASSIUM CHLORIDE 10 MEQ TABCR PO SCH (08:07)
--- NOTE | 2023-10-31 08:16 | Orthopedic Progress Note ---
Date of Service October 31, 2023 Assessment & Plan (1) Myelopathy concurrent with and due to spinal stenosis of cervical region: Plan: Sheyla is postoperative day 1 status post C5 corpectomy. Ambulate ad martha. Will maintain MARITA drain and dressing. [place] J collar is on at all times. May remove to bathe and to eat. She is orthopedically stable. Admission and Anticipated Discharge Date Admission Date: October 28, 2023 Ira Carrion is postoperative day 1 status post C5 corpectomy Secondary to cervical myelopathy. She has some dysphagia. No shortness of breath. She has been up and ambulatory around the room. MARITA drain output is 20 cc. No radicular arm pain. She is scheduled for an implantable loop recorder on Thursday with car diology. Review of Systems Review of Systems: All systems reviewed & are unremarkable except as noted in HPI & below Physical Exam Physical Exam: Alert and oriented x 3 No acute distress Dressing is clean dry and intact with functioning MARITA drain [place] J collar intact Strength intact bilateral upper and lower extremities Results & Data Vital Signs (Past 12 Hours) Vital Signs Temp Pulse Pulse Resp BP Pulse Ox O2 Del Method 10/31/23 07:55 61 16 96 Room Air 10/31/23 07:11 36.8 C 62 18 173/77 H 93 Room Air 10/31/23 05:11 36.6 C 58 L 16 162/82 H 96 Nasal Cannula 10/31/23 03:17 68 16 97 Nasal Cannula 10/30/23 22:13 69 16 96 Nasal Cannula 10/30/23 21:11 36.4 C L 65 16 176/84 H 96 Nasal Cannula 10/30/23 20:41 Nasal Cannula 10/30/23 20:31 16 98 Nasal Cannula O2 Flow Rate 10/31/23 07:55 10/31/23 07:11 10/31/23 05:11 1 10/31/23 03:17 1 10/30/23 22:13 1 10/30/23 21:11 1 10/30/23 20:41 1 10/30/23 20:31 2
[2023-10-31] MEDS: INSULIN ASPART PER UNIT CHARGE SC SCH ×4 (08:57→20:56)
--- NOTE | 2023-10-31 16:57 | Billing Data ---
Date of Service October 31, 2023 Coding Level of Care Code 63288 SUB INP/OBS CARE
[2023-10-31] MEDS: LOSARTAN POTASSIUM 50 MG TAB PO SCH (20:02)
[2023-10-31] MEDS: ASPIRIN 81 MG ECTAB PO SCH (20:03)
[2023-10-31] MEDS: ATORVASTATIN 40 MG TAB PO SCH (20:03)
[2023-10-31] MEDS: MAGNESIUM OXIDE 400 MG TAB PO SCH (20:03)
[2023-10-31] MEDS: LATANOPROST 0.005% OP SOLN 2.5 ML BTL OP SCH (20:03)
[2023-10-31] MEDS: CHOLECALCIFEROL 1,000 UNITS 25 MCG TAB PO SCH (20:04)
[2023-10-31] MEDS: DOCUSATE SODIUM/SENNA 50/8.6MG TAB PO SCH (20:04)
[2023-10-31] MEDS: FERROUS SULFATE 325 MG TAB PO SCH (20:05)
[2023-11-01] MEDS: LACTATED RINGER'S 1,000 ML IV SCH ×2 (01:48→12:18)
[2023-11-01] MEDS: POLYETHYLENE (MIRALAX) 17 GM PACK PO SCH ×4 (05:33→23:05)
[2023-11-01 06:03] LABS: Hematocrit (blood only) 37.2 % (37.0-47.0); Mean Corpuscular Hemoglobin 32.8 pg (25.0-34.0); Mean Corpuscular Hgb Conc 34.9 g/dL (32.0-36.0); Mean Corpuscular Volume 93.9 fL (80.0-100.0); Mean Platelet Volume 10.8 fL (9.4-12.4); Platelet Count 133 K/uL (130-400); RDW Coefficient of Variation 12.9 % (11.5-14.5); RDW Standard Deviation 44.2 fL (36.4-46.3); Red Blood Count 3.96 M/uL (4.20-5.40); White Blood Count 5.85 K/ul (4.8-10.8)
[2023-11-01 06:18] LABS: BUN Creatinine Ratio 26.3 (10-20); Calcium 8.8 mg/dl (8.6-10.3); Creatinine Clr Calc Pharmacy 66.2 ml/min; Est GFR (Non-African American) 71.6 ml/min; Potassium 4.1 mmol/L (3.5-5.1)
--- NOTE | 2023-11-01 08:49 | Orthopedic Progress Note ---
Date of Service November 01, 2023 Assessment & Plan (1) Myelopathy concurrent with and due to spinal stenosis of cervical region: Plan: Sheyla is postoperative day 2 status post C5 corpectomy. I will DC MARITA drain and dressing changes morning. Maintain [place] J collar at all times with exception of bathing and eating. Ambulate ad martha. Orthopedically stable for procedure tomorrow and for discharge. Admission and Anticipated Discharge Date Admission Date: October 28, 2023 Ira Carrion is postoperative day 2 status post C5 corpectomy. She is doing well. Still has some fingertip numbness. She is up and ambulatory to the restroom and voiding without issue. Balance is improving. Has mild dysphagia. MARITA drain output last shift was 10 cc. Yesterday in physical therapy Ambulatiing 100 feet. She is scheduled tomorrow for an implantable loop recorder for cardiology Review of Systems Review of Systems: All systems reviewed & are unremarkable except as noted in HPI & below Physical Exam Physical Exam: She is sitting up in bed eating breakfast No acute distress Alert and oriented x 3 O2 is 96% on room air Strength is intact bilateral upper extremities [place] J collar intact Cervical dressing clean dry and intact with functioning MARITA drain Results & Data Vital Signs (Past 12 Hours) Vital Signs Temp Pulse Pulse Resp BP BP Pulse Ox 11/01/23 07:37 62 11/01/23 07:36 36.5 C 71 20 168/91 H 96 11/01/23 03:31 36.9 C 67 16 167/77 H 96 10/31/23 23:23 36.8 C 64 17 165/77 H 97 10/31/23 21:53 67 O2 Del Method 11/01/23 07:37 11/01/23 07:36 Room Air 11/01/23 03:31 Room Air 10/31/23 23:23 Room Air 10/31/23 21:53
--- NOTE | 2023-11-01 08:49 | Hospitalist Progress Note ---
Date of Service November 01, 2023 Assessment & Plan (1) Paresthesia of upper extremity: (2) History of gastric bypass: (3) History of cardiac cath: (4) Diabetes: (5) Syncope and collapse: (6) CHI (closed head injury): Daljit Carrion is a 78-year-old female with a past medical history of cataract surgery, diabetes, anxiety/depression, who presented after a fall 1 day [employer]. She did strike her head and has a forehead contusion on ER evaluation. Patient has shooting pain in her upper extremities bilaterally. Suddenly passed out on 10/27 without warning- no lightheadedness, dizziness, and had normal blood sugar at the time. Syncope without Prodrome -No prodrome, no lightheadedness/dizziness preceding this. Denies orthostatic symptoms. -Sudden onset syncope with facial injury highly concerning for cardiogenic syncope. Normal sinus rhythm on admission. Denies chest pain/chest pressure/exertional angina. -Echo completed: left ventricular systolic function normal, no regional wall motion abnormalities, mild concentric LVH, EF 60-65% -Patient denies history of arrhythmia, telemetry and EKG unrevealing at present -Cardiology consulted, appreciate recommendations -Per note, planning for loop recorder placement on 11/02 -Continue monitoring on telemetry CHI (closed head injury) -With syncope evaluation is noted. No ICH. -Forehead contusion with ecchymosis -Normal mentation Anxiety and depression -Continue home medications, no acute change in management Cervical Spinal Stenosis with Myeloradiculopathy | Paresthesia of upper extremity -MRI of c-spine/brain shows evidence of significant cervical spinal stenosis -Ortho spine surgery consulted, appreciate recommendations -S/p Anterior Cervical Corpectomy 10/30 -[place] J collar at present Diabetes -Diet controlled since significant weight loss following bariatric surgery. -Sliding scale as needed goal BSG 110-150 History of cardiac cath -Patient reports she has never had chest pain, this was performed for shortness of breath prior to having weight loss and was normal many years ago. Shortness of breath was found to be due to weight and improved after her weight loss. 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 Awaiting loop recorder tomorrow. vitals noted laying in bed facial bruising hard collar on Cspine breathing unlabored no accessory muscles good effort skin no rashes no pallor or icterus neuro no focal deficits traumatic syncope - on multiple revisits of HPI she recalls no prodrome. monitoring here, EKG, echo all reassuring, but hx is not. for loop recorder tomorrow. it is possible that this was a "vasaoactive" event (such as orthostasis) and the lack of prodrome was due to concussion/amnesia, but would reach that conclusion by exclusion. Cspine trauma and severe Cspine stenosis - hard collar, post op. appreciate ortho/spine input. PT/OT eval and treat. pain reasonable. Appears stable for discharge in this regard pharmacologic DVT proph on hold due to spine surgery; SCDs ordered for now, ambulation Subjective Sheyla states that she is doing well this morning. Continues to have some parasthesia in her left hand, right back to normal. Review of Systems Review of Systems: As per above Physical Exam Physical Exam: Constitutional: well-appearing, no acute distress HEENT: NCAT, no conjunctival injection CV: regular rhythm, no murmur appreciated, extremities well-perfused, no LE edema Resp: CTABL, no wheezes/rales/rhonchi appreciated, no increased work of breathing MSK: no gross deformities appreciated [place] J collar intact Strength intact bilateral upper and lower extremities Skin: warm, dry, no rash appreciated Neuro: alert, oriented, no focal neurologic deficit appreciated Results & Data Results & Data Vital Signs (Past 12 Hours) Vital Signs Temp Pulse Pulse Resp BP BP Pulse Ox 11/01/23 07:37 62 11/01/23 07:36 36.5 C 71 20 168/91 H 96 11/01/23 03:31 36.9 C 67 16 167/77 H 96 10/31/23 23:23 36.8 C 64 17 165/77 H 97 10/31/23 21:53 67 O2 Del Method 11/01/23 07:37 11/01/23 07:36 Room Air 11/01/23 03:31 Room Air 10/31/23 23:23 Room Air 10/31/23 21:53 Resident Activity Tracking Resident Involvement: Resident Care Provided Care Provided: Adult Hospital Medicine (6) CHI (closed head injury) Encounter type: subsequent encounter Qualified Code(s): S09.90XD - Unspecified injury of head, subsequent encounter
[2023-11-01] MEDS: VENLAFAXINE HCL XR 37.5 MG CAPXR PO SCH (08:58)
[2023-11-01] MEDS: busPIRone 5 MG TAB PO SCH ×2 (08:58→20:15)
[2023-11-01] MEDS: PANTOprazole 40 MG TAB PO SCH (08:58)
[2023-11-01] MEDS: hydroCHLOROthiazide 25 MG TAB PO SCH (08:58)
[2023-11-01] MEDS: CALCIUM 600MG + VIT D 400 IU TAB PO SCH ×2 (08:58→20:15)
[2023-11-01] MEDS: DULoxetine HCL 60 MG CAP PO SCH (08:58)
[2023-11-01] MEDS: INSULIN ASPART PER UNIT CHARGE SC SCH ×4 (08:59→20:15)
[2023-11-01] MEDS: CYANOCOBALAMIN (B-12) 500 MCG TABLET PO SCH (08:59)
[2023-11-01] MEDS: ACETAMINOPHEN 500 MG TAB PO PRN ×2 (09:05→22:33)
--- NOTE | 2023-11-01 20:07 | Billing Data ---
Date of Service November 01, 2023 Coding Level of Care Code 73656 SUB INP/OBS CARE
[2023-11-01] MEDS: LOSARTAN POTASSIUM 50 MG TAB PO SCH (20:14)
[2023-11-01] MEDS: DOCUSATE SODIUM/SENNA 50/8.6MG TAB PO SCH (20:14)
[2023-11-01] MEDS: ASPIRIN 81 MG ECTAB PO SCH (20:14)
[2023-11-01] MEDS: MAGNESIUM OXIDE 400 MG TAB PO SCH (20:14)
[2023-11-01] MEDS: CHOLECALCIFEROL 1,000 UNITS 25 MCG TAB PO SCH (20:14)
[2023-11-01] MEDS: LATANOPROST 0.005% OP SOLN 2.5 ML BTL OP SCH (20:14)
[2023-11-01] MEDS: ATORVASTATIN 40 MG TAB PO SCH (20:15)
[2023-11-01] MEDS: FERROUS SULFATE 325 MG TAB PO SCH (20:15)
[2023-11-02] MEDS: INSULIN ASPART PER UNIT CHARGE SC SCH ×2 (05:34→12:45)
[2023-11-02] MEDS: POLYETHYLENE (MIRALAX) 17 GM PACK PO SCH ×2 (05:40→13:18)
[2023-11-02 06:34] LABS: Hematocrit (blood only) 38.9 % (37.0-47.0); Hemoglobin 13.5 g/dl (12.0-16.0); Mean Corpuscular Hemoglobin 32.3 pg (25.0-34.0); Mean Corpuscular Hgb Conc 34.7 g/dL (32.0-36.0); Mean Corpuscular Volume 93.1 fL (80.0-100.0); Mean Platelet Volume 10.7 fL (9.4-12.4); Platelet Count 145 K/uL (130-400); RDW Coefficient of Variation 12.8 % (11.5-14.5); RDW Standard Deviation 43.6 fL (36.4-46.3); Red Blood Count 4.18 M/uL (4.20-5.40)
[2023-11-02 06:46] LABS: BUN Creatinine Ratio 21.6 (10-20); Calcium 9.1 mg/dl (8.6-10.3); Creatinine Clr Calc Pharmacy 55.4 ml/min; Est GFR (African American) 65.8 ml/min; Est GFR (Non-African American) 56.7 ml/min; Potassium 3.9 mmol/L (3.5-5.1)
[2023-11-02] MEDS: busPIRone 5 MG TAB PO SCH (08:47)
[2023-11-02] MEDS: PANTOprazole 40 MG TAB PO SCH (08:47)
[2023-11-02] MEDS: DULoxetine HCL 60 MG CAP PO SCH (08:47)
[2023-11-02] MEDS: hydroCHLOROthiazide 25 MG TAB PO SCH (08:47)
[2023-11-02] MEDS: VENLAFAXINE HCL XR 37.5 MG CAPXR PO SCH (08:47)
--- NOTE | 2023-11-02 08:50 | Cardiology Progress Note ---
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 Ceja is a 78 year old female with a history of Anxiety/Depression, Obesity s/p Gastric Bypass, Type 2 Diabetes Mellitus, Overactive Bladder, Minimal Carotid Plaque at the Left Carotid Bifurcation, Hypertension, and Dysli pidemia who was admitted to [facility] on 10/28/23 after sustaining a Syncopal Episode resulting in a Closed Head Injury and BUE Paresthesias secondary to Cervical Spinal Stenosis/Cervical Myelopathy. She underwent C-spine surgery earlier on 10/30/23 and tolerated it well. Her Syncopal Episode is very concerning for being Cardiogenic as she had no warning or prodromal symptoms. Patient was in her usual state of health on 10/28/23 and states that while walking to her kitchen she must have suddenly collapsed because she woke up on the floor with head and facial pain, BUE paresthesias, and mild confusion. Patient denies any prodromal warning symptoms at all -- she did not experience any prodromal nausea, diaphoresis, lightheadedness, dizziness, weakness, palpitations, dyspnea, or chest discomfort. Admittedly she did hit her head so there is a possibility she does not recall all of the details -- but she does feel confident in saying "I did not have any warning symptoms." After she regained consciousness, she got up off of the floor, cleaned up the blood and broken glass, and then sat down at the table to wait for her to come home from a meeting at the [employer] [place]. Her immediately checked her blood sugar and it was 131 mg/dL. Her syncopal event was not witnessed. In the past she has had sporadic episodes of lightheadedness/syncope related to hypoglycemia but she has very obvious and consistent warning symptoms when she is hypoglycemic -- and they did not happen with this event. I also spoke to the patient's via telephone on 10/30/23 and he recalled at least 5 syncopal episodes over the past 3 years that were mostly associated with hypoglycemia but 1 or 2 episodes he was not sure of. Cardiac monitoring has been benign showing NSR at normal rates and has been unremarkable through the weekend and this morning. CBC with diff and BMP dated 11/02/23 are both within normal limits with the exception of an elevated BSG at 137 mg/dL. We discussed possible causes of syncope -- including conduction disease, heart block, bradycardia, hemodynamically unstable tachyarrhythmias, vasovagal causes, dehydration, hypotension, hypoglycemia. It is reassuring that she has normal LV/bi-ventricular systolic function. We recommend further evaluation. Patient is on the schedule for an Implantable Loop Recorder this morning with either Dr. Varghese or Dr. Varghese. Patient may be discharged to home following Loop Recorder implantation. She is scheduled to follow-up with Herrera Mcdermott PA-C in [facility] on 12/02/2023 at 1:30 p.m. -- this is her 1 month follow-up from loop recorder implantation. Admission and Anticipated Discharge Date Admission Date: October 28, 2023 Subjective Mrs. Ceja offers no complaints today and she is anxious to go home. She continues to recover from her C-spine surgery -- still with some BUE paresthesias. Patient has not had any syncopal episodes since being hospitalized, and her cardiac monitoring shows no evidence of arrhythmia thus far. She is on the schedule for Loop Recorder implantation today with either Dr. Xie or Dr. Varghese. Review of Systems Review of Systems: -- UE paresthesias are better following surgical decompression, steroids, etc. -- 10 point ROS completed and is negativ e with the exception of what is mentioned in the HPI. Physical Exam Physical Exam: BP 152/82. Pulse 80 and regular, RR 14, SpO2 is 97% on RA.. GENERAL: Patient in no acute distress. Sitting comfortably in a bedside chair. HEENT: Facial and forehead ecchymoses and abrasions. EOM's intact. Facies symmetric. No perioral cyanosis. NECK: Neck is obscured by a Chitina J collar. CHEST/LUNGS: Clear to auscultation throughout all lung hendricks. No wheezes, rales, or crackles. CVS: S1 and S2 are regular without murmurs, gallops, or rubs. PMI is nonpalpable. No lifts, heaves, or thrills. No abdominal aortic or renal bruits. ABDOMINAL EXAM: Bowel sounds are present. No masses, organomegaly, or tenderness. EXTREMITIES: No clubbing or cyanosis. No edema. Intact radial pulses bilaterally. NEUROLOGIC EXAM: Patient is awake, alert, and oriented. Pleasant and cooperative. Answers questions appropriately. Speech is clear. MOTION PICTURE FILM EXAMINER: -- NSR in the 70's to 80's.. ECHOCARDIOGRAM 10/28/23: -- Normal LV size and systolic function. -- Mild concentric LVH. -- LVEF 60% to 65% with normal wall polina on. -- No evidence of interatrial shunt on b ubble study. -- No prior studies available for compar gael. Results & Data Vital Signs (Past 12 Hours) Vital Signs Temp Pulse Pulse Resp BP Pulse Ox O2 Del Method 11/02/23 07:36 36.8 C 73 19 152/82 H 97 Room Air 11/02/23 03:21 36.7 C 78 18 148/86 H 95 Room Air 11/01/23 23:49 36.9 C 80 18 158/77 H 93 Room Air 11/01/23 21:57 81 Laboratory Results Laboratory Results - last 24 hr 11/01/23 11/01/23 11/01/23 11:34 16:26 20:15 WBC RBC Hgb Hct MCV MCH MCHC RDW Std Deviation RDW Coeff of Karen Plt Count MPV Sodium Potassium Chloride Carbon Dioxide Anion Gap BUN Creatinine Est Cr Clr Drug Dosing Est GFR ( Amer) Est GFR (Non-Af Amer) BUN/Creatinine Ratio Glucose POC Glucose 96 94 119 H Calcium 11/02/23 11/02/23 05:30 05:42 WBC 6.30 RBC 4.18 L Hgb 13.5 Hct 38.9 MCV 93.1 MCH 32.3 MCHC 34.7 RDW Std Deviation 43.6 RDW Coeff of Karen 12.8 Plt Count 145 MPV 10.7 Sodium 136 Potassium 3.9 Chloride 99 Carbon Dioxide 31 Anion Gap 6 BUN 21 Creatinine 0.97 Est Cr Clr Drug Dosing 55.4 Est GFR ( Amer) 65.8 Est GFR (Non-Af Amer) 56.7 BUN/Creatinine Ratio 21.6 H Glucose 137 H POC Glucose 137 H Calcium 9.1 Medications Administered Medication List Acetaminophen (Acetaminophen 500 Mg Tab) 1,000 mg PO Q8H PRN PRN Reason: MILD Pain Scale 1,2,3 & Pre PT Stop: 11/29/23 10:40 Last Admin: 11/01/23 22:33 Dose: 1,000 mg Documented By: Admin: 11/01/23 09:05 Dose: 1,000 mg Documented By: Admin: 10/31/23 08:02 Dose: 1,000 mg Documented By: Admin: 10/30/23 22:43 Dose: 1,000 mg Documented By: ANDREW Aspirin (Aspirin 81 Mg Ectab) 81 mg PO QPM REGGIE Stop: 11/27/23 20:59 Last Admin: 11/01/23 20:14 Dose: 81 mg Documented By: Admin: 10/31/23 20:03 Dose: 81 mg Documented By: Admin: 10/30/23 20:02 Dose: 81 mg Documented By: Admin: 10/29/23 20:10 Dose: 81 mg Documented By: Admin: 10/28/23 19:30 Dose: Not Given Documented By: MANOJ Atorvastatin Calcium (Atorvastatin 40 Mg Tab) 40 mg PO QPM REGGIE Stop: 11/27/23 20:59 Last Admin: 11/01/23 20:15 Dose: 40 mg Documented By: Admin: 10/31/23 20:03 Dose: 40 mg Documented By: Admin: 10/30/23 20:02 Dose: 40 mg Documented By: Admin: 10/29/23 20:11 Dose: 40 mg Documented By: Admin: 10/28/23 19:30 Dose: Not Given Documented By: MANOJ Buspirone HCl (Buspirone 5 Mg Tab) 5 mg PO BID REGGIE Stop: 11/27/23 20:59 Last Admin: 11/02/23 08:47 Dose: 5 mg Documented By: Admin: 11/01/23 20:15 Dose: 5 mg Documented By: Admin: 11/01/23 08:58 Dose: 5 mg Documented By: Admin: 10/31/23 20:03 Dose: 5 mg Documented By: Admin: 10/31/23 08:04 Dose: 5 mg Documented By: Admin: 10/30/23 20:01 Dose: 5 mg Documented By: Admin: 10/30/23 11:28 Dose: 5 mg Documented By: Admin: 10/29/23 20:09 Dose: 5 mg Documented By: Admin: 10/29/23 08:41 Dose: 5 mg Documented By: Admin: 10/28/23 19:31 Dose: Not Given Documented By: MANOJ Calcium/Vitamin D (Calcium 600mg + Vit D 400 Iu Tab) 1 tab PO BID REGGIE Stop: 11/27/23 20:59 Last Admin: 11/01/23 20:15 Dose: 1 tab Documented By: Admin: 11/01/23 08:58 Dose: 1 tab Documented By: Admin: 10/31/23 20:04 Dose: 1 tab Documented By: Admin: 10/31/23 08:05 Dose: 1 tab Documented By: Admin: 10/30/23 20:01 Dose: 1 tab Documented By: Admin: 10/30/23 11:28 Dose: 1 tab Documented By: Admin: 10/29/23 20:09 Dose: 1 tab Documented By: Admin: 10/29/23 08:41 Dose: 1 tab Documented By: Admin: 10/28/23 19:31 Dose: Not Given Documented By: MANOJ Cyanocobalamin (Cyanocobalamin (B-12) 500 Mcg Tablet) 1,000 mcg [facility] [place] Stop: 11/28/23 08:59 Last Admin: 11/01/23 08:59 Dose: 1,000 mcg Documented By: Admin: 10/31/23 08:05 Dose: 1,000 mcg Documented By: Admin: 10/30/23 11:28 Dose: 1,000 mcg Documented By: Admin: 10/29/23 08:42 Dose: 1,000 mcg Documented By: NAHUM Duloxetine HCl (Duloxetine Hcl 60 Mg Cap) 60 mg PO QAM REGGIE Stop: 11/28/23 08:59 Last Admin: 11/02/23 08:47 Dose: 60 mg Documented By: Admin: 11/01/23 08:58 Dose: 60 mg Documented By: Admin: 10/31/23 08:03 Dose: 60 mg Documented By: Admin: 10/30/23 11:29 Dose: 60 mg Documented By: Admin: 10/29/23 08:42 Dose: 60 mg Documented By: NAHUM Ferrous Sulfate (Ferrous Sulfate 325 Mg Tab) 325 mg PO [facility] Stop: 11/27/23 20:59 Last Admin: 11/01/23 20:15 Dose: 325 mg Documented By: Admin: 10/31/23 20:05 Dose: 325 mg Documented By: Admin: 10/30/23 20:03 Dose: 325 mg Documented By: Admin: 10/29/23 20:10 Dose: 325 mg Documented By: Admin: 10/28/23 19:31 Dose: Not Given Documented By: MANOJ Hydrochlorothiazide (Hydrochlorothiazide 25 Mg Tab) 25 mg PO QAM REGGIE Stop: 11/28/23 08:59 Last Admin: 11/02/23 08:47 Dose: 25 mg Documented By: Admin: 11/01/23 08:58 Dose: 25 mg Documented By: Admin: 10/31/23 08:06 Dose: 25 mg Documented By: Admin: 10/30/23 11:29 Dose: 25 mg Documented By: Admin: 10/29/23 08:44 Dose: 25 mg Documented By: NAHUM Insulin Aspart (Insulin Aspart Per Unit Charge) 0 units SC Q6 REGGIE Stop: 12/02/23 05:59 Last Admin: 11/02/23 05:34 Dose: Not Given Documented By: ANDREW Latanoprost (Latanoprost 0.005% Op Soln 2.5 Ml Btl) 1 drops OP HS [facility] Stop: 11/27/23 20:59 Last Admin: 11/01/23 20:14 Dose: 1 drops Documented By: Admin: 10/31/23 20:03 Dose: 1 drops Documented By: Admin: 10/30/23 20:02 Dose: 1 drops Documented By: Admin: 10/29/23 20:10 Dose: 1 drops Documented By: Admin: 10/28/23 20:40 Dose: 1 drops Documented By: MANOJ Losartan Potassium (Losartan Potassium 50 Mg Tab) 100 mg PO QPM REGGIE Stop: 11/27/23 20:59 Last Admin: 11/01/23 20:14 Dose: 100 mg Documented By: Admin: 10/31/23 20:02 Dose: 100 mg Documented By: Admin: 10/30/23 20:02 Dose: 100 mg Documented By: Admin: 10/29/23 20:10 Dose: 100 mg Documented By: Admin: 10/28/23 19:31 Dose: Not Given Documented By: MANOJ Magnesium Oxide (Magnesium Oxide 400 Mg Tab) 400 mg PO QPM REGGIE Stop: 11/27/23 20:59 Last Admin: 11/01/23 20:14 Dose: 400 mg Documented By: Admin: 10/31/23 20:03 Dose: 400 mg Documented By: Admin: 10/30/23 20:01 Dose: 400 mg Documented By: Admin: 10/29/23 20:11 Dose: 400 mg Documented By: Admin: 10/28/23 19:32 Dose: Not Given Documented By: MANOJ Melatonin (Melatonin 3 Mg Tab) 3 mg PO HS PRN PRN Reason: Sleep Stop: 11/28/23 16:51 Last Admin: 10/30/23 21:30 Dose: 3 mg Documented By: ANDREW Pantoprazole Sodium (Pantoprazole 40 Mg Tab) 40 mg PO QAM REGGIE Stop: 11/28/23 08:59 Last Admin: 11/02/23 08:47 Dose: 40 mg Documented By: Admin: 11/01/23 08:58 Dose: 40 mg Documented By: Admin: 10/31/23 08:04 Dose: 40 mg Documented By: Admin: 10/30/23 11:30 Dose: 40 mg Documented By: Admin: 10/29/23 08:41 Dose: 40 mg Documented By: NAHUM Polyethylene Glycol (Polyethylene (Miralax) 17 Gm Pack) 17 gm PO Q6 REGGIE Stop: 11/30/23 05:59 Last Admin: 11/02/23 05:40 Dose: Not Given Documented By: Admin: 11/01/23 23:05 Dose: 17 gm Documented By: Admin: 11/01/23 17:22 Dose: 17 gm Documented By: Admin: 11/01/23 12:17 Dose: 17 gm Documented By: Admin: 11/01/23 05:33 Dose: 17 gm Documented By: Admin: 10/31/23 23:07 Dose: 17 gm Documented By: Admin: 10/31/23 17:37 Dose: Not Given Documented By: Admin: 10/31/23 17:08 Dose: 17 gm Documented By: Admin: 10/31/23 05:24 Dose: 17 gm Documented By: ANDREW Potassium Chloride (Potassium Chloride 10 Meq Tabcr) 10 meq PO Q2D REGGIE Stop: 11/28/23 08:59 Last Admin: 10/31/23 08:07 Dose: 10 meq Documented By: Admin: 10/29/23 08:43 Dose: 10 meq Documented By: NAHUM Senna/Docusate Sodium (Docusate Sodium/Senna 50/8.6mg Tab) 2 tab PO HS [facility] Stop: 11/29/23 20:59 Last Admin: 11/01/23 20:14 Dose: 2 tab Documented By: Admin: 10/31/23 20:04 Dose: 2 tab Documented By: Admin: 10/30/23 20:03 Dose: 2 tab Documented By: ANDREW Tramadol HCl (Tramadol Hcl 50 Mg Tablet) 50 - 100 mg PO Q4H PRN PRN Reason: Moderate-Severe pain & Pre PT Stop: 11/29/23 10:40 Last Admin: 11/01/23 15:23 Dose: 50 mg Documented By: NIYA Venlafaxine HCl (Venlafaxine Hcl Xr 37.5 Mg Capxr) 37.5 mg [facility] Stop: 11/28/23 08:59 Last Admin: 11/02/23 08:47 Dose: 37.5 mg Documented By: Admin: 11/01/23 08:58 Dose: 37.5 mg Documented By: Admin: 10/31/23 08:04 Dose: 37.5 mg Documented By: Admin: 10/30/23 11:30 Dose: 37.5 mg Documented By: Admin: 10/29/23 08:44 Dose: 37.5 mg Documented By: NAHUM Vitamin D (Cholecalciferol 1,000 Units 25 Mcg Tab) 2,000 units PO QPM [facility] Stop: 11/27/23 20:59 Last Admin: 11/01/23 20:14 Dose: 2,000 units Documented By: Admin: 10/31/23 20:04 Dose: 2,000 units Documented By: Admin: 10/30/23 20:02 Dose: 2,000 units Documented By: Admin: 10/29/23 20:11 Dose: 2,000 units Documented By: Admin: 10/28/23 19:31 Dose: Not Given Documented By: MANOJ Discontinued Medications Cefazolin Sodium (Cefazolin 330 Mg/Ml 1 Gm Vial) Confirm Administered Dose 990 mg .ROUTE .STK-MED ONE Stop: 10/30/23 07:19 Last Admin: 10/30/23 09:17 Dose: 1,000 mg Documented By: KENIA Cefazolin Sodium (Cefazolin 2,000 Mg/15 Ml Iv Push) Confirm Administered Dose 2,000 mg IV .STK-MED ONE Stop: 10/30/23 07:38 Last Admin: 10/30/23 07:44 Dose: 2,000 mg Documented By: [id number] Fentanyl Citrate (Fentanyl Citrate Pf 100 Mcg/2 Ml Vial) 50 mcg IV Q5M PRN PRN Reason: PACU Use Only-Pain Stop: 10/30/23 15:13 Last Admin: 10/30/23 10:16 Dose: 50 mcg Documented By: ALEXX Dexamethasone 8 mg/ Syringe 2 mls @ 1 mls/min IV Q8H REGGIE Stop: 11/27/23 20:59 Last Admin: 10/30/23 04:41 Dose: 1 mls/min Documented By: Admin: 10/29/23 20:09 Dose: 1 mls/min Documented By: Admin: 10/29/23 13:04 Dose: 1 mls/min Documented By: Admin: 10/29/23 03:36 Dose: 1 mls/min Documented By: Admin: 10/28/23 21:50 Dose: 1 mls/min Documented By: MANOJ Acetaminophen (Ofirmev) 1,000 mg in 100 mls @ 400 mls/hr IV Q8H PRN PRN Reason: Pain Rating 1-3 & Pre PT Stop: 10/31/23 10:41 Last Infusion: 10/30/23 12:48 Dose: Infused Documented By: Admin: 10/30/23 12:33 Dose: 400 mls/hr Documented By: BELINDA Cefazolin Sodium (Ancef 2000mg) 2,000 mg in 15 mls @ 3.75 mls/min IV Q8H REGGIE; Protocol Stop: 10/30/23 23:33 Last Admin: 10/30/23 22:43 Dose: 3.75 mls/min Documented By: Admin: 10/30/23 16:29 Dose: 3.75 mls/min Documented By: JAM Lactated Ringer's (Lr) 1,000 mls @ 100 mls/hr IV .Q10H REGGIE Stop: 11/29/23 10:40 Last Admin: 11/01/23 12:18 Dose: Not Given Documented By: Admin: 11/01/23 01:48 Dose: Not Given Documented By: Admin: 10/31/23 17:36 Dose: Not Given Documented By: Admin: 10/31/23 05:20 Dose: Not Given Documented By: Infusion: 10/31/23 05:20 Dose: Infused Documented By: Admin: 10/30/23 21:30 Dose: 100 mls/hr Documented By: Infusion: 10/30/23 21:30 Dose: Infused Documented By: Admin: 10/30/23 11:39 Dose: 100 mls/hr Documented By: BELINDA Insulin Aspart (Insulin Aspart Per Unit Charge) 0 units SC ACHS [facility] Stop: 11/27/23 16:29 Last Admin: 10/29/23 20:43 Dose: 1 units Documented By: ANDREW Co-signed By: MAMI Admin: 10/29/23 17:37 Dose: 1 units Documented By: NAHUM Co-signed By: GPF Admin: 10/29/23 13:02 Dose: 1 units Documented By: NAHUM Co-signed By: GPF Admin: 10/29/23 08:52 Dose: 1 units Documented By: NAHUM Co-signed By: MARIO Admin: 10/28/23 21:05 Dose: Not Given Documented By: MANOJ Co-signed By: rubber cutter and shape carver: 10/28/23 17:17 Dose: Not Given Documented By: JEANNINE Insulin Aspart (Insulin Aspart Per Unit Charge) 0 units SC Q6 [facility] Stop: 11/29/23 05:59 Last Admin: 10/30/23 18:04 Dose: 1 units Documented By: JAM Co-signed By: GPF Admin: 10/30/23 12:38 Dose: 1 units Documented By: BELINDA Co-signed By: GPF Admin: 10/30/23 05:52 Dose: 1 units Documented By: ANDREW Co-signed By: ANDREW Insulin Aspart (Insulin Aspart Per Unit Charge) 0 units SC ACHS [facility] Stop: 11/29/23 20:59 Last Admin: 11/01/23 20:15 Dose: Not Given Documented By: Admin: 11/01/23 16:30 Dose: Not Given Documented By: NIYA Co-signed By: MARIO Admin: 11/01/23 12:18 Dose: Not Given Documented By: NIYA Co-signed By: MAYI Admin: 11/01/23 08:59 Dose: Not Given Documented By: NIYA Co-signed By: MARIO Admin: 10/31/23 20:56 Dose: Not Given Documented By: ANDREW Co-signed By: NORMA Admin: 10/31/23 17:35 Dose: Not Given Documented By: NICOLE Co-signed By: MARIO Admin: 10/31/23 12:48 Dose: Not Given Documented By: Admin: 10/31/23 08:57 Dose: Not Given Documented By: Admin: 10/30/23 20:57 Dose: Not Given Documented By: ANDREW Lorazepam (Lorazepam 0.5 Mg Tab) 0.5 mg PO NOW STA Stop: 10/29/23 10:58 Last Admin: 10/29/23 11:50 Dose: 0.5 mg Documented By: NAHUM Miscellaneous ( Floseal Hemostatic Matrix 10ml) 10 ml TOP ONCE ONE Stop: 10/30/23 08:29 Last Admin: 10/30/23 09:18 Dose: 15 ml Documented By: KENIA PG Care Time/CCT Total # of Minutes Spent Total Time Spent with Patient: Total time spent is greater than 50% in coordination of care (as documented) at patient's floor/unit and/or counseling patient:41 [place] [address] SUB INP/OBS CARE 3/50MIN Patient Type Established History Detailed Exam Detailed Medical Decision Making High Complexity Diagnoses Syncope and collapse R55 Closed head injury, subsequent encounter S09.90XD Encounter type: subsequent encounter Closed fracture of nasal bone with routine healing, subsequent encounter S02.2XXD Encounter type: subsequent encounter Fracture healing: with routine healing Fracture type: closed Contusion of forehead, subsequent encounter S00.83XD Encounter type: subsequent encounter Myelopathy concurrent with and due to spinal stenosis of cervical region M48.02; G99.2 Time Spent (min) 55 (2) CHI (closed head injury) Encounter type: subsequent encounter Qualified Code(s): S09.90XD - Unspecified injury of head, subsequent encounter (3) Fracture of nasal bone Encounter type: subsequent encounter Fracture healing: with routine healing Fracture type: closed Qualified Code(s): S02.2XXD - Fracture of nasal bones, subsequent encounter for fracture with routine healing (4) Forehead contusion Encounter type: subsequent encounter Qualified Code(s): S00.83XD - Contusion of other part of head, subsequent encounter
[2023-11-02] MEDS ORDERED: LIDOCAINE 1% LOCAL 20 ML VIAL ONE (09:13)
--- NOTE | 2023-11-02 10:53 | Electrophysiology Report ---
Date of Service November 02, 2023 Electrophysiology Procedure Electrophysiology Procedure Report The procedure performed: Implantation of patient activated loop recorder Staff reactor technician: Dequan Varghese MD Indication: Syncope Procedure in detail: The patient was informed of the risks benefits and alternatives to the intended procedure. They understood such and wished to proceed. The patient was taken to the electrophysiology suite where the upper chest area was prepped and draped in the usual sterile fashion. An area left lateral to the sternum in the 4th intercostal space was subsequently anesthetized using subcutaneous administration of lidocaine solution. A small incision was made at this site and implantation of the loop recorder was accomplished using a proprietary implantation tool. The small incision was subsequently closed using a single 4 0 Vicryl suture. Steri-Strips and a sterile dressing were then applied. The patient tolerated the procedure well. There were no immediate complications. The device was tested noninvasively prior to conclusion of the procedure. Equipment used: Patient activated loop recorder: Water Quality Specialist [employer]. Model number [id number]. Serial number [id number] Electrophysiology codes Implantable Monitors Procedure 1: Implantable Monitors: [id number] Loop Recorder Implant
[2023-11-02] MEDS: CYANOCOBALAMIN (B-12) 500 MCG TABLET PO SCH (12:42)
[2023-11-02] MEDS: CALCIUM 600MG + VIT D 400 IU TAB PO SCH (12:42)
[2023-11-02] MEDS: POTASSIUM CHLORIDE 10 MEQ TABCR PO SCH (12:42)
--- NOTE | 2023-11-02 14:13 | Discharge Summary ---
Date of Service November 02, 2023 Admission HPI Per Admitting Provider Sheyla is a 78-year-old female with a past medical history of cataract surgery who presented after a fall 1 day [employer]. She did strike her head and has a forehead contusion on ER evaluation. Patient has shooting pain in her upper extremities bilaterally. Per Pt: Suddenly passed out yesterday. No warning. BSG was checked 131 at the time. No lightheadedness, dizziness. Was just playing with the dog and the cat watching TV. Did get up to take metamucil and take the glass into the kitchen and then next thing she knew was waking up on the floor of the house. No chest pain or chest pressure. No headache. No lightheadeness or dizziness. Denies weakness, has had some paresthesia in her hands bilaterally since yesterday. Denies GI bleeding and melena. Denies other bleeding. Denies focal weakness/extremity weakness. Denies vision change. Denies diplopia. Denies expressive or receptive aphasia. Denies dysarthria. No hx of lightheadedness No history of heart disease. Had a cardiac cath due to transient shortness of breath 'many man yyears ago before my weight loss' which showed nonobstructive disease/no disease. Was done in [place] w/ f/u to [place] and 'I was the only one normal that day.' Since falling has numbness/tingling in her fingertips which feel like 'little shocks'. Shoots down between the elbow and wrists/fingers on BOTH sides.' noted she transiently seemed a little confused and disoriented like she was with low blood sugar before falling, pt does not recall this and they checked her BSG which was normal as noted Hx of emphysema and asthma, takes no medications History of T2DM which was cured after weight loss with gastric bipass HTN on losartan/hctz. Took this AM. No hx orthostasis, feels her BP has been OK generally. Was seen in a hospital in [place] last year and ?evidence of ministrokes but patient has never had stroke like symptoms Medical History: Reviewed Medications: Reviewed Surgical History: Reviewed Family history: Reviewed Allergies: Reviewed Social History: Tobacco use in remission since 1994. Prior 30 years 1 ppd on average. Etoh 1 drink in the evening,one hard seltzer soemtimes in the evening. Code Status: DNR/DNI, discussed on admit Admission Exam Per Admitting Provider General: A&Ox3. NAD. Cooperative. HEENT: Swelling and contusion at the bridge of the nose. No ongoing bleeding. Pupils equal and reactive to light. EOM intact without pain and no evidence of entrapment Pulm: CTAB A&P. -wheezes, -rales, -rhonchi. Symmetrical chest rise. No increased work of breathing. No respiratory distress. Cardiac: RRR, -mrg. Radial pulses intact and symmetrical. Abdominal: Nontender, nondistended, soft. BS present. Extremities: Warm, dry. Guide Visitor strength, elbow flexion, shoulder flexion, hip flexion, ankle dorsiflexion/plantarflexion 5/5 bilaterally without asymmetry. Guide Visitor strength does produce some radicular symptoms from digits 1-3 extending up to the elbow bilateral with a shocking quality. No symptoms induced on continued elbow flexion, tinel's negative at the cubital tunnel bilaterally. and froment's sign is not present. Principal Diagnosis Cervical Spine Stenosis, Syncope Discharge Exam Constitutional comfortable; no acute distress Eyes + anicteric sclerae; no conjunctival abnormality ENMT Ears: no external ear abnormality Nose: no external nose abnormality Respiratory normal respiratory effort; does not use accessory muscles Cardiovascular Rate/Rhythm: regular rate and regular rhythm Musculoskeletal Moves all limbs independently Neurologic awake Psychiatric A+Ox3, euthymic affect Discharge Data Allergies Allergy/AdvReac Type Severity Reaction Status Date / Time celecoxib AdvReac Unknown SKIN Verified 09/07/23 08:00 BRUISING Consultations 10/28/23 12:52 ED Decision to Admit Stat 10/28/23 20:44 Consult Orthopedic Spine Surgery Routine 10/29/23 14:23 Consult Cardiology Routine Procedures Performed Operation Date: 11/02/23 09:30 Actual Procedures p Implant Cardiac Event Recorder - Dequan Varghese MD Ordered Studies 10/28/23 09:38 CT cervical spine wo con Stat CT facial bones wo con Stat CT head/brain wo con Stat 10/28/23 12:16 MR brain wo con Stat MR cervical spine wo con Stat 10/30/23 07:45 FL cervical 2-3V Routine Cervical Spine CT 10/28/23 09:38 CT cervical spine wo con CLINICAL HISTORY: 78 years-old Female with s/p fall. Acute neck pain status post fall COMPARISON: None. TECHNIQUE: Multiple axial CT images of the cervical spine were obtained without contrast. A dose lowering technique was utilized adhering to the principles of ALARA. FINDINGS: Demineralized appearance of the bones. Multilevel degenerative changes include moderate to severe disc space narrowing at C5-C6 and C6-C7 with moderate spondylitic spurring and moderate-sized posterior disc osteophyte complex formations with moderate facet arthrosis. Severe degeneration at C1-C2. No acute cervical spine fracture or subluxation identified. The cervical soft tissues appear unremarkable. The visualized lung apices appear clear. IMPRESSION: No acute cervical spine fracture or subluxation. ACT 112: Negative or not required by law. The above report was generated using voice recognition software. It may contain grammatical, syntax or spelling errors. Electronically signed by: Joaquín Carmona M.D. 10/28/2023 11:[address] 10/28/23 09:[address] WITHOUT CONTRAST CLINICAL HISTORY: s/p fall COMPARISON STUDY: None. TECHNIQUE: A maxillofacial CT was performed without IV contrast. Coronal and sagittal reformats were viewed. Automated exposure control was utilized for the study. A dose lowering technique was utilized adhering to the principles of ALARA. FINDINGS: A left forehead contusion is present. Globes are intact with no retrobulbar hematoma. No displaced facial fractures are present. Orbital floors are intact. There is an age indeterminate nondisplaced left nasal bone fracture. Alignment of the temporomandibular joints is anatomic. Mastoid air cells are clear. No skull base fracture is present IMPRESSION: 1. Age indeterminate nondisplaced left nasal bone fracture. 2. Left forehead contusion. Globes intact. No retrobulbar hematoma. ACT 112: Negative or not required by law. Electronically signed by: Thaddeus Walker M.D. 10/28/2023 10:[address] 10/28/23 09:38 CT SCAN OF THE BRAIN WITHOUT IV CONTRAST CLINICAL HISTORY: Fall. COMPARISON STUDY: No priors. TECHNIQUE: Unenhanced axial CT scan of the brain is performed from the vertex to the skull base. A dose lowering technique was utilized adhering to the principles of ALARA. FINDINGS: Brain parenchyma: There is age-related involutional change noting mild to moderate subcortical and periventricular microangiopathic disease. There is no hemorrhage, mass effect, or evidence of acute territorial ischemia by CT criteria. Singleton-white matter differentiation is preserved. No extra-axial fluid collection is seen. Ventricles, sulci, cisterns: Prominent secondary to involutional change. Intracranial vasculature: There is atherosclerotic calcification of the cavernous carotid arteries. Calvarium: The skeletal structures are osteopenic. No depressed calvarial fracture is seen. Soft tissues: There is a left frontal scalp contusion. Sinuses and mastoids: The paranasal sinuses are clear. The mastoid air cells are well pneumatized. Orbits: The bony orbits are grossly intact. There are bilateral ocular lens implants. IMPRESSION: 1. There is no hemorrhage, mass effect, or evidence of acute territorial ischemia by CT criteria. 2. Left frontal scalp contusion. ACT 112: Negative or not required by law. Electronically signed by: Erick Proctor M.D. 10/28/2023 10:48 AM Chest X-Ray 10/28/23 09:42 XR chest 1V portable CLINICAL HISTORY: Syncope. COMPARISON STUDY: Chest radiograph November 15, 2008. FINDINGS: Elevation of the right hemidiaphragm is unchanged. Lungs are clear. There is no pneumothorax or pleural effusion. Cardiomegaly is unchanged. Mediastinal contours are normal. There is no evidence for pulmonary edema. IMPRESSION: No acute cardiopulmonary findings. No change in appearance of the chest. ACT 112: Negative or not required by law. Electronically signed by: Thaddeus Walker M.D. 10/28/2023 10:29 AM Brain MRI 10/28/23 12:16 MRI OF THE BRAIN WITHOUT IV CONTRAST CLINICAL HISTORY: Syncope. Head injury. COMPARISON STUDY: CT of the brain dated 10/28/2023. TECHNIQUE: MRI of the brain was performed utilizing various T1 and T2-weighted sequences in the axial, sagittal, and coronal planes. IV contrast was not administered for this examination. FINDINGS: Brain parenchyma: There is age-related involutional change noting mild to moderate subcortical and periventricular microangiopathic disease. There is no hemorrhage or mass effect. There is no restricted diffusion to suggest acute ischemia. Singleton-white matter differentiation is preserved. No extra-axial fluid collection is seen. The cerebellar tonsils are normal in configuration. Ventricles, sulci, and cisterns: Prominent secondary to involutional change. Pituitary and sella: Unremarkable. Intracranial vasculature: Normal flow voids are maintained at the skull base. Orbits: The bony orbits are grossly intact. Orbital contents are normal in appearance noting bilateral ocular lens implants. Sinuses and mastoids: Clear. Calvarium: Unremarkable. Soft tissues: There is left frontal scalp contusion. Cervical cord: Partially visualized cervical spinal cord is normal in morphology and signal intensity. IMPRESSION: No acute intracranial abnormality. ACT 112: Negative or not required by law. Electronically signed by: Erick Proctor M.D. 10/28/2023 6:56 PM Cervical Spine MRI 10/28/23 12:16 CR Exam(s): MRI C SPINE EXAM: MR Cervical Spine Without Intravenous Contrast CLINICAL HISTORY: Fall. TECHNIQUE: Magnetic resonance images of the cervical spine without intravenous contrast in multiple planes. COMPARISON: CT C spine 10/28/2023. FINDINGS: Vertebrae: No acute fracture or malalignment. Spinal cord: There is mild edema of the spinal cord at the level of C4 and C5. Soft tissues: Unremarkable. DISCS/SPINAL CANAL/NEURAL FORAMINA: C2-C3: Minimal disc osteophyte compress without significant neural foraminal stenosis or spinal canal stenosis. C3-C4: Disc osteophyte complex and uncovertebral spurs results in mild bilateral neural foraminal stenosis. There is mild spinal canal stenosis. C4-C5: Disc osteophyte complex and uncovertebral spurs of C4-C5 results in moderate bilateral neural foraminal stenosis. There is moderate spinal canal stenosis. C5-C6: Disc osteophyte complex and uncovertebral spurs of C5-C6 results in moderate bilateral neural foraminal stenosis. There is moderate spinal canal stenosis. C6-C7: Disc osteophyte complex and uncovertebral spurs results in moderate bilateral neural foraminal stenosis. There is mild spinal canal stenosis. C7-T1: Mild disc osteophyte complex results in no significant stenosis. IMPRESSION: 1. There is mild edema of the spinal cord at the level of C4 and C5. 2. Disc osteophyte complex and uncovertebral spurs of C4-C5 results in moderate bilateral neural foraminal stenosis. There is moderate spinal canal stenosis. 3. Disc osteophyte complex and uncovertebral spurs of C5-C6 results in moderate bilateral neural foraminal stenosis. There is moderate spinal canal stenosis. Communications: Call Doctor Above results Electronically signed by: Pennie Sotomayor MD 10/28/23 20:30 PM Cervical Spine X-Ray 10/30/23 07:45 FL cervical 2-3V CLINICAL HISTORY: C5 ANTERIOR CERVICAL CORPECTOMY COMPARISON STUDY: None. FLUOROSCOPY TIME: 8 seconds. FLUOROSCOPY IMAGES: 2 Ka,r: 0.8 mGy FINDINGS: Anterior cervical discectomy and fusion from C4 through C6 with C5 corpectomy and bone graft. The hardware appears intact. The endotracheal tube is partially visualized. There is a surgical sponge at the incision site within the anterior neck. IMPRESSION: Fluoroscopic assistance as above. ACT 112: Negative or not required by law. Electronically signed by: Alexey Dos Santos M.D. 10/30/2023 10:05 AM Hospital Course (1) Paresthesia of upper extremity: (2) History of gastric bypass: (3) History of cardiac cath: (4) Diabetes: (5) Syncope and collapse: (6) CHI (closed head injury): Daljit Carrion is a 78-year-old female with a past medical history of cataract surgery, diabetes, anxiety/depression, who presented after a fall 1 day [employer]. She did strike her head and has a forehead contusion on ER evaluation. Patient has shooting pain in her upper extremities bilaterally. Suddenly passed out on 10/27 without warning- no lightheadedness, dizziness, and had normal blood sugar at the time. Traumatic Syncope without Prodrome No prodrome, no lightheadedness/dizziness preceding this. Denies orthostatic symptoms. Sudden onset syncope with facial injury highly concerning for cardiogenic syncope. Normal sinus rhythm on admission. Denies chest pain/chest pressure/exertional angina. Echo completed: left ventricular systolic function normal, no regional wall motion abnormalities, mild concentric LVH, EF 60-65%. Patient denies history of arrhythmia, telemetry and EKG unrevealing. Cardiology consulted, loop recorder placed on 11/02 to hopefully identify any possible arrhythmias. Cardiology will follow up with patient after discharge. Cervical Spinal Stenosis with Myeloradiculopathy | Paresthesia of upper extremity MRI of c-spine/brain shows evidence of significant cervical spinal stenosis. Ortho spine surgery consulted, s/p Anterior Cervical Corpectomy 10/30. Patient tolerated surgery well, has been able to ambulate and work with PT. H2020 at time of discharge, patient to follow with Dr. Cuevas after discharge. Radiculopathy symptoms improved post surgery. -tramadol rx sent on discharge for pain control. CHI (closed head injury) No ICH. Forehead contusion with ecchymosis. Normal mentation Anxiety and depression -Continue home medications, no acute change in management Diabetes Diet controlled since significant weight loss following bariatric surgery, sliding scale as needed during admission due to steroids. Total Time Total Time Spent Total Time Spent (In Minutes): . Discharge Plan Discharge Items Patient Disposition: Home - Self-Care Reason For Visit: SYNCOPE Discharge Diagnosis: Cervical Spinal Stenosis, Syncope Activity: Per Instructions section Lifting: No more than 5 pounds Bathing: Keep incision dry Bathing Comment: Keep loop recorder wound dry and steri-strip intact for 5 days. Exercise/Sports: None Non-emergency contact: Primary Care Provider, Surgeon and Managed Care Provider Call non-emergency contact if: you have any medication questions and your symptoms worsen Follow-up/Referrals: Jonathan Nieto MD [Physician] - 12/08/23 11:00 am Miles Cuevas DO [Surgeon] - (Please contact patient to schedule post op appointment) Ellie Huddleston M.D. [Primary Care Provider] - 11/10/23 12:00 pm () Diet: Regular Addtl Attending Provider Instructions: ACTIVITY RECOMMENDATIONS: SELF CARE INSTRUCTIONS AFTER CERVICAL FUSIONS 1. No smoking. Smoking drastically decreases the chance of a solid fusion. 2. No bending, lifting more than 5 pounds, or twisting (roll like a log when turning in bed). 3. You may shower 3 days after surgery. Thoroughly dry wound. Do not soak in the tub. 4. Cervical collar: Must be worn at all times including sleeping. You may remove the brace only to bath, eat and if you are sitting in a recliner. 5. Please walk as much as you can for exercise. Gradually increase the distance that you walk as your endurance increases. SPECIAL CARE INSTRUCTIONS: VERY IMPORTANT TO READ AND REVIEW A. Do not take any anti-inflammatory medications (i.e. Indocin, Advil, Aspirin, Naprosyn, Aleve, Motrin, etc.) as these may inhibit the chance of a solid fusion. Tylenol is okay to take. B. Your surgical incision has been closed with a cosmetic suture under the skin that will dissolve in about 6 weeks. In 14 days, you can use a pair of clean scissors and cut the suture that is left outside of the skin at the ends of your incision. C. Complications are uncommon, but please contact us if you have any signs or symptoms of: 1. wound infection (fever higher than 102.5 degrees F, redness, separation of wound, drainage, or increasing pain from the incision) 2. blood clots in legs (pain, swelling, redness and warmth in legs) 3. urinary tract infection (fever higher than 102.5 degrees, burning upon urination or increased frequency of urination) 4. nerve problems (inability to walk on your toes or heels, numbness, loss of bowel or bladder control) 5. any other symptoms that concern you. D. Please call the office at if you have any concerns or que stions about your operation or recovery. MANAGING PAIN AFTER SPINAL SURGERY 1. Narcotic medication is intended for short-term use and will be provided for surgical pain. Surgical pain usually lasts for a period of 4-6 weeks. Narcotic medication includes Percocet, Vicodin, Darvocet, Tylenol #3 or Lortab. 2. Longer-term pain is more appropriately treated with non-narcotic medication such as Tylenol ES. 3. Muscle spasm is not appropriately treated with narcotics. Muscle relaxers such as Soma, Flexeril or Skelaxin can be used along with Tylenol ES. 4. Remember that we all live with some "aches and pains". This is not unusual or uncommon after an injury or as we get older. 5. We will provide appropriate medication within the normal guidelines of their prescribed use. We will also be very cautious and aware of potential abuse and extended duration of patients' medication needs. 6. Please allow 2-3 days to process refills. Prescriptions will not be mailed but must be picked up at the office. FOLLOW UP VISIT: Keep your scheduled follow-up appointment. Any questions, please call the office at . You are scheduled to follow-up with Herrera Mcdermott PA-C in [facility] on 12/02/2023 at 1:30 p.m. For pain control, we have spent a short course of Tramadol- take Tylenol for first line pain and Tramadol as needed. Pending Studies at Discharge: No Stand-Alone Forms: My [facility] [employer], Smoking Cessation Medications and DC Order Prescriptions: New acetaminophen [Tylenol Extra Strength] 500 mg Tablet 1,000 mg PO Q8H PRNQty: 0 0RF tramadol 50 mg tablet 50 mg PO Q8H PRN (Reason: pain) Qty: 7 0RF Continued amoxicillin 500 mg capsule 2,000 mg PO .1 HR BEFORE CAROL ANN PRN (Reason: dental ) latanoprost 0.005 % drops 1 drp ophthalmic (eye) HS atorvastatin 40 mg Tablet 40 mg PO QPM buspirone 5 mg Tablet 5 mg PO BID venlafaxine 37.5 mg Capsule,Extended Release 24hr 37.5 mg PO QAM cyanocobalamin (vitamin B-12) [Vitamin B-12] 1,000 mcg Tablet 1,000 mcg PO QAM potassium chloride 10 mEq Tablet Extended Release 10 meq PO .EVERY OTHER DAY Patient Comments: evening calcium carbonate-vitamin D3 600 mg-5 mcg (200 unit) Tablet 1 tab PO BID aspirin 81 mg Tablet,Delayed Release (Dr/Ec) 81 mg PO QPM magnesium 250 mg Tablet 250 mg PO QPM hydrochlorothiazide 25 mg Tablet 25 mg PO QAM losartan 100 mg Tablet 100 mg PO QPM ferrous sulfate 325 mg (65 mg iron) Capsule, Extended Release 65 mg PO HS duloxetine 60 mg Capsule,Delayed Release(Dr/Ec) 60 mg PO QAM cholecalciferol (vitamin D3) [Vitamin D3] 50 mcg (2,000 unit) Capsule 50 mcg PO QPM esomeprazole magnesium 20 mg Tablet,Delayed Release (Dr/Ec) 20 mg PO QAM Discharge Orders: Discharge Order (Routine); Ordered 11/02/23 Ordered By: Veronica Yuan/Other Patient Handouts: Know Your Neck: The Cervical Spine Admission Data Admit Date/Time: 10/28/23 13:22 Attending Provider: Veronica Aguirre Admit Provider: Miles Cuevas Primary Care Provider: Ellie Huddleston Other Providers: Alex Solorzano; Miles Cuevas; Jonathan Nieto; Ugo Kilgore Other Interventions: Discharge Summary Assessment (RN) Last Done: 11/02/23 13:52 Supervising Physician Co-Signing Physician Notes Attending Physician Supervision Note: I independently interviewed and examined the patient and verified the jordan history and physical, reviewed labs and image studies and agree with findings and care plan noted above.
== END 2023-11-02 14:42 | disposition home or self-care (01) | DRG 981 ==
LOC: ED 09:27 → SUATTDRO 13:22 → EDINP 13:22 → 4W 14:07